=== PATIENT | female | born 1950 | race Caucasian/White ===

== ENCOUNTER → 2023-12-07 08:43 | Outpatient (REF) | payer MEDICARE, OTHER, SELFPAY | LOC: RST 08:43 | PROVIDERS: ATTENDING PHYSICIAN Internal Medicine | DX: R13.12 Dysphagia, oropharyngeal phase (principal) | CPT/HCPCS: 74230; 92611 ==

== ENCOUNTER 2023-12-19 01:35 | Inpatient (IN) | payer MEDICARE, OTHER, SELFPAY ==
[2023-12-18 20:19] VITALS: BMI 28.4
[2023-12-18 20:20] VITALS: BP 127/63
[2023-12-18 20:23] VITALS: BP 127/63
[2023-12-18 21:02] VITALS: BP 115/68
[2023-12-18] MEDS: ZOFRAN 4 MG IV (21:20)
[2023-12-18 22:00] VITALS: BP 110/77
--- NOTE | 2023-12-18 22:14 | ED.GENMED ---
History of Present Illness
General
Chief Complaint: Airway Problem
Source: patient and other (Nursing staff)
Exam Limitations: none
Time Seen by Provider: 12/18/23 20:43
Travel History
Have you had any contact with someone who has COVID-19?: Unable to Answer
Do you have any symptoms of coronavirus? Fever > 100 degrees, chills, cough, shortness of breath, sore throat, loss of taste or smell, muscle aches, or headache?: Unable to Answer
History of Present Illness
History of Present Illness:
This is a 73 year old female that is brought in by ambulance with c/o possible aspiration. Patient was getting a tube feeding and vomiting. Patient was sent in from [facility] as they were concerned about aspiration. Patient is Coughing. States
that she is nauseated, vomiting and has a headache. Denies any fever, chills, chest pain, abd pain, dizziness, urinary burning.
Past History
Past History
ED Past Medical History: CVA, GERD, HTN, Hypercholesterolemia, NIDDM, Psychiatric (Anxiety, Depression, ) and Other (Aphasia, dementia, PE, Anemia)
ED Past Surgical History: Other (G-tube)
Social History
Alcohol: None
Living: [facility]
Review of Systems
Review of Systems
All Other Systems: ROS reviewed and negative except as documented in HPI and ROS (patient able to answer questions)
Constitutional: Reports no symptoms; Denies fever or chills
EENT: Reports no symptoms
Respiratory: Reports cough and trouble breathing
Cardiac: Reports no symptoms; Denies chest pain
ABD/GI: Reports nausea and vomiting; Denies abdominal pain or diarrhea
: Reports no symptoms
Musculoskeletal: Reports no symptoms
Neurological: Reports headache; Denies dizzy
Psychiatric: Reports no symptoms
Phy Exam
General Physical Exam
General Presentation: mild distress
General age: appears stated age
General Skin: warm and dry
General Habitus: elderly
General Mental: usual mental status
General Hydration: appears well hydrated
ENT Exam
ENT Exam: TM's normal, pharynx normal and neck supple
Eye Exam
Eye Exam: EOMI
Cardiovascular Exam
Cardiovascular Exam: no edema, normal peripheral pulses and tachycardia
Pulmonary Exam
Pulmonary Exam: lungs clear, no respiratory distress, no rales, chest non tender, no crackles, no rhonchi, no wheezing and other (Course cough, Upper throat and airway secretions noted and suctioned. Lungs clear after)
Gastrointestinal Exam
Gastrointestinal Exam: normal bowel sounds, non tender, soft, no organomegaly, no pulsatile mass, non distended and other (large pasty brown stool)
External Findings: gastrostomy tube
Musculoskeletal Exam
Musculoskeletal Exam: no edema and other (Limited movement of the lower legs)
Skin Exam
Skin Exam: normal color, warm/dry, no rash and no petechia
Psychiatric Exam
Psychiatric Exam: normal mood/affect
Course
Orders/Labs/Results
Orders:
Orders
12/18/23 19:55
Ondansetron Injectable [Zofran] 4 mg IV NOW STA
12/18/23 20:22
Electrocardiogram (*1) Urgent
Reason for Study: Palpitations
EKG- Treatment ONCE
12/18/23 20:51
Ondansetron Injectable [Zofran] 4 mg .ROUTE .STK-MED ONE
12/18/23 22:13
CR Chest - 2 Views Urgent
Comment:
Reason For Exam: Cough, concern for aspiration
12/18/23 22:28
Complete Blood Count/With Diff Urgent
Comprehensive Metabolic Panel Urgent
Lactic Acid Urgent
12/18/23 22:52
Ketorolac [Toradol] 30 mg .ROUTE .STK-MED ONE
12/18/23 22:53
Ketorolac [Toradol] 30 mg IV NOW STA
12/18/23 23:45
LevoFLOXacin 500 MG/100 ML [Levaquin] 500 mg in 100 ml IV NOW
Abnormal Lab Results
12/18/23
22:28
WBC 16.5 H 10^3/uL
(4.8-10.8)
RBC 3.93 L 10^6/uL
(4.20-5.40)
Hgb 11.4 L g/dL
(12.0-16.0)
Hct 35.2 L %
(37.0-47.0)
MCHC 32.4 L g/dL
(33.0-37.0)
RDW 18.4 H %
(11.5-14.5)
MPV 10.9 H fL
(7.4-10.4)
Abs Immat Gran (auto) 0.1 H 10^3/uL
(0-0.05)
Absolute Neuts (auto) 14.3 H 10^3/uL
(1.4-6.5)
Absolute Lymphs (auto) 0.8 L 10^3/uL
(1.2-3.4)
Absolute Monos (auto) 1.0 H 10^3/uL
(0.1-0.6)
Immature Gran % 0.8 H %
(0-0.5)
Neutrophils % 86.9 H %
(42.2-75.2)
Lymphocytes % 4.9 L %
(20.5-51.1)
Potassium 3.4 L mmol/L
(3.5-5.1)
Chloride 113 H mmol/L
(98-107)
BUN 44 H mg/dl
(7-17)
Glucose 250 H mg/dl
(70-99)
Calcium 10.6 H mg/dl
(8.4-10.2)
12/18/23 22:28
12/18/23 22:28
Leukocytosis, H/h slightly low. Chloride elevation. Dehydration. Glucose nonfasting. Calcium slightly elevated. Lactic acid normal at 1.9
Vital Signs
Initial and Last Documented VS:
Initial Vital Signs
Pulse Resp BP Pulse Ox
133 25 127/63 93
12/18/23 20:20 12/18/23 20:20 12/18/23 20:20 12/18/23 20:20
Last Documented Vital Signs
Pulse Resp BP Pulse Ox
117 19 110/77 96
12/18/23 22:30 12/18/23 22:30 12/18/23 22:00 12/18/23 22:30
MDM/Problems Addressed
Differential Diagnosis Includes:
Aspiration Pneumonia.
MDM/Problems Addressed:
This is a 73 year old female that is brought in by ambulance after vomiting with her feeding tube. Patient had a low pulse ox in the 80's for EMS. Patient is coughing and has upper airway secretions
Will check labs and Chest x-ray.
Back into see patient. Explained that she has a left sided Pneumonia. Will admit patient. Hospitalists notified.
Chronic conditions affecting care:
Dysphasia, Dementia
Acute Exacerbation and/or Progression of Chronic Illness:
Dysphasia
*Radiology
Radiology exam reviewed: preliminary read by ED provider (Chest- Left sided lower lobe Pneumonia)
*Pulse Oximetry
Patient hypoxic: no
*EKG
Interpreted by ED Provider?: Yes
Heart Rate: 132
Rate: tachycardiac
Rhythm: sinus
[place]key: left axis deviation
Interval: normal interval
QRS Pattern: normal QRS and low voltage
Ischemia: non-specific ST changes (II, v3, v4, v5, v6, )
*Manager Developmental Interpretation
Rate: tachycardiac
Heart Rate: 132
Rhythm: sinus tachycardia
*Critical Care Note
Total Time (30-74mins, 75-104mins- exclusive of procedures): Not Applicable
ED Attending Note
-
Portions of this chart may have been created with voice recognition software.� Occasional wrong word or��sound alike� substitutions may have occurred due to the inherent limitations of voice recognition software.
Discharge Plan
Departure
Patient Disposition: Admit
Date of Disposition: 12/18/23
Time of Disposition: 23:49
Admit to: Med/Surg
Presentation/result/management discussed w/ accepting MD/DO: Hospitalist
Patient with high blood pressure during this ER visit?: No
Condition: Good
Covid-19: Not Applicable
Discharge Problem:
Left lower lobe pneumonia
Prescriptions:
No Action
Xanax
acetaminophen
aspirin
atorvastatin
carvedilol
fenofibrate
gabapentin
guaifenesin
ipratropium bromide
lansoprazole
levothyroxine
melatonin
metformin
rivaroxaban
scopolamine base
Referrals:
Anoop Wolf MD [Family Provider] -
Interventions
Interventions:
*Risk Screen - Suicide Last Done: 12/18/23 21:10
*General Assessment Last Done: 12/18/23 21:10
*Neglect/Abuse Screening Last Done: 12/18/23 21:10
ED- Fall Risk Assessment Last Done: 12/18/23 21:10
ED- Pulmonary Assessment Last Done: 12/18/23 21:10
Discharge Date and Time
Print Language: MONGOLIAN
[2023-12-18 22:33] LABS: % Basophils 0.4 % (0-2); % Eosinophils 0.9 % (0-6); % Immature Granulocytes 0.8 % (0-0.5); % Lymphocytes 4.9 % (20.5-51.1); % Monocytes 6.1 % (1.7-9.3); % Neutrophils 86.9 % (42.2-75.2); Absolute Basophils 0.1 10^3/uL (0-0.2); Absolute Eosinophils 0.1 10^3/uL (0-0.7); Absolute Immature Granulocytes 0.1 10^3/uL (0-0.05); Absolute Lymphocytes 0.8 10^3/uL (1.2-3.4); Absolute Neutrophils 14.3 10^3/uL (1.4-6.5); Hematocrit 35.2 % (37.0-47.0); Hemoglobin 11.4 g/dL (12.0-16.0); Mean Corp Hgb Conc. 32.4 g/dL (33.0-37.0); Mean Corpuscular Volume 89.6 fL (81.0-99.0); Mean Platelet Volume 10.9 fL (7.4-10.4); Nucleated Red Blood Cells % 0 %; Platelet Count 292 10^3/uL (130-400); Red Blood Cell Count 3.93 10^6/uL (4.20-5.40); Red Cell Dist. Width 18.4 % (11.5-14.5); White Blood Cell Count 16.5 10^3/uL (4.8-10.8)
[2023-12-18 22:48] LABS: ALT (SGPT) 16 U/L (0-35); AST (SGOT) 23 U/L (14-36); Albumin 3.7 g/dl (3.5-5.0); Alkaline Phosphatase 70 U/L (38-126); Blood Urea Nitrogen 44 mg/dl (7-17); Calcium 10.6 mg/dl (8.4-10.2); Carbon Dioxide 22 mmol/L (22-30); Chloride 113 mmol/L (98-107); Estimated Creatinine Clearance 82 ml/min; Glucose 250 mg/dl (70-99); Lactic Acid 1.9 mmol/L (0.7-2.0); Potassium 3.4 mmol/L (3.5-5.1); Sodium 145 mmol/L (135-145); Total Bilirubin 0.3 mg/dl (0.2-1.3); Total Protein 7.1 g/dl (6.3-8.2); eGFR > 60.00
[2023-12-18] MEDS: TORADOL 30 MG IV (22:54)
[2023-12-18 23:00] VITALS: BP 106/59
[2023-12-19] VITALS (10 sets, daily range): BP systolic 92–118; BP diastolic 46–67; BMI 28.4
[2023-12-19] MEDS: LEVAQUIN 100 IV (00:24)
--- NOTE | 2023-12-19 00:56 | HPS.HSE ---
Family Physician
-
Family Physician: Anoop Wolf MD
Chief Complaint
-
sent to ER for aspiration ?
History of Present Illness
73F Res of Maryana Abele HX CVA, G Tube dependent feeding, aphasic, Dementia [facility] EMS for evalaution NH for sent sent
Report she was nauseated prior to vomiting.
ROS
Denies any fever, chills, chest pain, abd pain, dizziness, urinary burning.
@ ER
Mildly tachypneic, POx low 90s requiring 4 l NC O2
Medical History
Past Medical History
Past Medical History: Reports Other
Additional Past Medical History:
CVA, GERD, HTN, Hypercholesterolemia, NIDDM, Psychiatric (Anxiety, Depression, ) and Other (Aphasia, dementia, PE, Anemia
Past Surgical History: Reports Other
Additional Past Surgical History:
PEG TF
Social History
Tobacco: Non-smoker
Alcohol: None
Living: Alf
Family History
Family History: Not pertinent
Allergies / Home Medications
Allergies reflects when Allergies were last updated in [facility].
Home Medications with original date entered in [facility]
Allergy/Medication List:
Allergies
Allergy/AdvReac Type Severity Reaction Status Date / Time
Penicillins Allergy Unknown Verified 12/18/23 20:26
Sulfa (Sulfonamide Allergy Unknown Verified 12/18/23 20:26
Antibiotics)
Home Medications
Xanax 12/18/23
acetaminophen 12/18/23
aspirin 12/18/23
atorvastatin 12/18/23
carvedilol 12/18/23
fenofibrate 12/18/23
gabapentin 12/18/23
guaifenesin 12/18/23
ipratropium bromide 12/18/23
lansoprazole 12/18/23
levothyroxine 12/18/23
melatonin 12/18/23
metformin 12/18/23
rivaroxaban 12/18/23
scopolamine base 12/18/23
Review of Systems
-
Constitutional: Reports No Symptoms
EENT: Reports No Symptoms
Respiratory: Reports Cough
Cardiac: Reports No Symptoms
Abdomen/GI: Reports Nausea and Vomiting
: Reports No Symptoms
Musculoskeletal: Reports No Symptoms
Skin: Reports No Symptoms
Neurological: Reports No Symptoms
Endocrine: Reports No Symptoms
Hematologic/Lymphatic: Reports No Symptoms
Psych: Reports No Symptoms
Physical Exam
Vital Signs
Vital Signs
Pulse Resp BP Pulse Ox
105 15 108/52 96
12/19/23 00:30 12/19/23 00:30 12/19/23 00:00 12/19/23 00:30
Physical Exam
General: Appears in Distress
HEENT: NormoCephalic, Anicteric and Moist mucous membranes
Respiratory: Clear; No Wheezes, Rales or Rhonchi
Cardiac: S1/S2 and Regular Rhythm
GI: Soft, Non Tender, Non Distended, Normal Bowel Sounds and Other (has PEG tube )
Genito-urinary: Deferred by me
Musculoskeletal: No Edema
Skin: Warm and Dry
Neuro: Awake and Alert
Psych: Calm
Laboratory Results
-
12/18/23 22:28
12/18/23 22:28
Laboratory Results
Lactic Acid 1.9 mmol/L (0.7-2.0) 12/18/23 22:28
Total Bilirubin 0.3 mg/dl (0.2-1.3) 12/18/23 22:28
AST 23 U/L (14-36) 12/18/23 22:28
ALT 16 U/L (0-35) 12/18/23 22:28
Alkaline Phosphatase 70 U/L (38-126) 12/18/23 22:28
Data Reviewed
-
Diagnostic Radiology: Image Personally Visualized and interpreted
Lab Data: Labs Reviewed by me
Impression/Plan
-
Reviewed VS: T ( ? ) Tachycardic 130s BP 125/65--> 105/60 RR 20s POx 90 - 95 on 4 L NC O2
Data
WCC 16s
Hgb 11.4
LA 1.9
K 3.4
Cl 113
BUN 44
Cr 0.6
e GFR > 60
BG 250
Pending PCT
CXR : Lt LL PNA by my view
No prior admission to
ASSESSMENT & PLAN
Pending Rx reconciliation
LLL PNA suspect aspiration PNA
Asso. acute hypoxic RF requiring 4 L NC O2
- HX PCN allergy but reaction unknown
- cont. IV LVQ , will add IV Flagyl
- cont. O2 support to keep POx > 94 %
- f/u PCT
- EKG to monitor QTc
Vomiting preceded by nausea
PEG TF dependent nutrition
- Flat plate AXR prior to TF
- Housekeeping Laundry Worker consult for TF
Hyperglycemia
NIDDM
- add ISS low
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
HX Aphasia s/p CVA
Dementia ? vascular origin
GERD
HTN
Hypercholesterolemia
NIDDM
Anxiety, Depression,
PE
Anemia
DVT Px: LMWH
Full code
IP TLM
[2023-12-19] MEDS: NSS 1000 IV (04:02)
[2023-12-19] MEDS: FLAGYL 500 MG 100 IV (04:03)
[2023-12-19 08:39] LABS: Hematocrit 30.9 % (37.0-47.0); Hemoglobin 9.5 g/dL (12.0-16.0); Mean Corp Hgb Conc. 30.7 g/dL (33.0-37.0); Mean Corpuscular Volume 94.2 fL (81.0-99.0); Mean Platelet Volume 11.9 fL (7.4-10.4); Platelet Count 248 10^3/uL (130-400); Red Blood Cell Count 3.28 10^6/uL (4.20-5.40); Red Cell Dist. Width 18.8 % (11.5-14.5); White Blood Cell Count 17.5 10^3/uL (4.8-10.8)
[2023-12-19 08:52] LABS: Lactic Acid 1.2 mmol/L (0.7-2.0)
[2023-12-19 09:18] LABS: Blood Urea Nitrogen 49 mg/dl (7-17); Carbon Dioxide 27 mmol/L (22-30); Chloride 113 mmol/L (98-107); Estimated Creatinine Clearance 44 ml/min; Glucose 144 mg/dl (70-99); Procalcitonin 26.17 ng/ml (0.0-0.25); Sodium 145 mmol/L (135-145); eGFR 52.73
[2023-12-19 09:41] LABS: Potassium 3.6 mmol/L (3.5-5.1)
[2023-12-19] MEDS: ZOSYN 50 IV ×3 (10:19→22:49)
[2023-12-19] MEDS: LR 1000 IV (10:19)
--- NOTE | 2023-12-19 10:30 | PHA.VAN.IN ---
Assessment
- Assessment
Renal Function: Unknown baseline (SCr jumped from 0.6 on 12/17 to 1.1 today.)
Maximum Temperature: 98.2
Minimum Temperature: 98.2
Concomitant Antimicrobials: Piperacillin-tazobactam
Plan
- Plan
Initial / Loading Dose: Vanc 1750mg (23mg/kg)
Maintenance Regimen: PRN by level for now. May switch to scheduled dosing if SCr improves
Monitoring: Random level 12/19
Pharmacokinetics Vancomycin I
- -
Patient Age: 73
Patient Sex: Female
Vancomycin Day #: 1
Indication: Pulmonary/Respiratory
Requesting Provider: Omega
Pertinent Antimicrobial Allergies:
PCN = unknown; Sulfa = unknown
Height / Weight:
Height 5 ft 4 in
Actual Weight 75 kg
IBW in k.7
Adjusted BW in k.8
- Vital Signs / Lab Results
Temp Pulse Resp BP Pulse Ox
98.2 F 86 16 94/52 96
12/19/23 04:08 12/19/23 09:29 12/19/23 09:29 12/19/23 04:08 12/19/23 09:29
Lab Results - Hematology
12/18/23 12/19/23
22:28 08:17
WBC 16.5 H 17.5 H
Lab Results - Chemistry
12/18/23 12/19/23
22:28 08:17
BUN 44 H 49 H
Creatinine 0.6 1.1 H
Estimated Creat Clear 82 44
Albumin 3.7
12/18/23 12/19/23
22:28 08:17
Lactic Acid 1.9 1.2
[2023-12-19] MEDS: VANCOCIN 535 MG IV (12:10)
--- NOTE | 2023-12-19 13:49 | W.PN.HOSP.TC ---
Today's Communication/Plan
-
abx
wean abx if possible
IVF
f/u cultures if expectorating
Assessment / Plan
Assessment / Plan
Physical Exam
General: Appears in Distress
HEENT: NormoCephalic, Anicteric and Moist mucous membranes
Respiratory: Clear; No Wheezes, Rales or Rhonchi
Cardiac: S1/S2 and Regular Rhythm
GI: Soft, Non Tender, Non Distended, Normal Bowel Sounds and Other (has PEG tube )
Genito-urinary: Deferred by me
Musculoskeletal: No Edema
Skin: Warm and Dry
Neuro: Awake and Alert
Psych: Calm
#?Chronic Hypoxic Respiratory Failure
#LLL Pneumonia
most likely large aspiration pneumonia
LLL PNA suspect aspiration PNA
-Can cont vanc/zosyn for now as lives in facility- quiickly de-escalate to unasyn if MRSA negative and responding well
- cont. O2 support to keep POx > 92 %
- wean o2 as tolerated
- EKG to monitor QTc
#Vomiting preceded by nausea
#PEG TF dependent nutrition
- Flat plate AXR prior to TF : no obstructions/abnormalities
- Cafeteria Operator consult for TF
#SHIVAM
--start ivf and monitor
-pre-renal v septic atn
Hyperglycemia
NIDDM
- add ISS low
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
HX Aphasia s/p CVA
Dementia ? vascular origin
GERD
HTN
Hypercholesterolemia
NIDDM
Anxiety, Depression,
PE
Anemia
DVT Px: LMWH
Full code
IP TLM
Anticipated Discharge: 24 - 48 hours
Subjective/Interval History
-
Date of Service: December 19, 2023
appears non toxic, on acute events
Objective Data
-
Labs:
Laboratory Results
12/19/23
08:17
WBC 17.5 H
Hgb 9.5 L
Hct 30.9 L
Plt Count 248
Sodium 145
Potassium 3.6
Chloride 113 H
Carbon Dioxide 27
BUN 49 H
Creatinine 1.1 H
Glucose 144 H
Calcium 10.0
Vital Signs:
Vital Signs
Temp Pulse Resp BP Pulse Ox
98.1 F 87 16 105/53 96
12/19/23 11:06 12/19/23 11:06 12/19/23 11:06 12/19/23 11:06 12/19/23 11:06
Review of Systems
-
History Source: Patient
All other systems: Not reviewed unless documented
Data Reviewed
-
Diagnostic Radiology: Image personally visualized and interpreted and Report Reviewed by me
Labs: Labs Reviewed by me
[2023-12-19] MEDS: LOVENOX 40 MG SC (17:32)
--- NOTE | 2023-12-19 20:00 | PTCARENOTE ---
Pt has a history of diabetes but no orders to check blood sugars. House LEAF FAT SCRAPER Iliana Hood notified, order for sliding scale NovoLog and accuchecks ordered.
[2023-12-20] VITALS (8 sets, daily range): BP systolic 135–179; BP diastolic 71–92; PULSE 83–84; O2SAT 97–98
[2023-12-20 00:17] LABS: Glucose - Point of Care 122 mg/dl (70-99)
[2023-12-20] MEDS: NOVOLOG FLEXPEN-LOW RESISTANCE SC ×2 (00:23→06:48)
[2023-12-20] MEDS: LR 1000 IV (03:44)
[2023-12-20] MEDS: ZOSYN 50 IV ×2 (04:37→10:29)
[2023-12-20 06:02] LABS: Glucose - Point of Care 130 mg/dl (70-99)
[2023-12-20 06:39] LABS: Hemoglobin 8.8 g/dL (12.0-16.0); Mean Corp Hgb Conc. 30.3 g/dL (33.0-37.0); Mean Corpuscular Hgb 29.1 pg (27.0-31.0); Mean Platelet Volume 11.8 fL (7.4-10.4); Platelet Count 229 10^3/uL (130-400); Red Blood Cell Count 3.02 10^6/uL (4.20-5.40); Red Cell Dist. Width 18.8 % (11.5-14.5); White Blood Cell Count 11.7 10^3/uL (4.8-10.8)
[2023-12-20 06:51] LABS: Vancomycin Random 14.6 ug/ml
[2023-12-20 07:21] LABS: ALT (SGPT) 13 U/L (0-35); AST (SGOT) 21 U/L (14-36); Albumin 3.2 g/dl (3.5-5.0); Alkaline Phosphatase 55 U/L (38-126); Blood Urea Nitrogen 42 mg/dl (7-17); Calcium 10.4 mg/dl (8.4-10.2); Carbon Dioxide 24 mmol/L (22-30); Chloride 114 mmol/L (98-107); Estimated Creatinine Clearance 70 ml/min; Glucose 127 mg/dl (70-99); Potassium 3.6 mmol/L (3.5-5.1); Sodium 147 mmol/L (135-145); Total Bilirubin 0.6 mg/dl (0.2-1.3); Total Protein 6.2 g/dl (6.3-8.2); eGFR > 60.00
--- NOTE | 2023-12-20 08:24 | PHA.VAN.FU ---
Vancomycin Assessment / Plan
- Assessment
Renal Function: Stable
WBC's are: Trending Down
In the past 24 hrs, patient has been: Afebrile
Concomitant Antimicrobials: Piperacillin/Tazobactam
- Assessment - Therapeutic Drug Monitoring
Random Level: 14.6
- Dosing Plan
Adjust Regimen to: 750mg Q12H
New Regimen Predicts: AUC (471), Peak (27.1), Trough (13.6)
- Monitoring Plan
No level(s) ordered at this time: Consider levels in next few days
- Follow Up
Pharmacy will continue to follow.
Vancomycin Follow UP
- -
Patient Age: 73
Patient Sex: Female
Vancomycin Day #: 2
Indication: Pulmonary/Respiratory
Requesting Provider: Omega
Pertinent Antimicrobial Allergies:
PCN = unknown; Sulfa = unknown
Height / Weight:
Height 5 ft 4 in
Actual Weight 75 kg
IBW in k.7
Adjusted BW in k.8
- Vital Signs / Lab Results
Temp Pulse Resp BP Pulse Ox
98.7 F 82 16 155/73 96
12/20/23 03:00 12/20/23 03:00 12/20/23 03:00 12/20/23 03:00 12/20/23 03:00
Lab Results - Hematology
12/18/23 12/19/23 12/20/23
22:28 08:17 06:12
WBC 16.5 H 17.5 H 11.7 H
Lab Results - Chemistry
12/18/23 12/19/23 12/20/23
22:28 08:17 06:12
BUN 44 H 49 H 42 H
Creatinine 0.6 1.1 H 0.7
Estimated Creat Clear 82 44 70
Albumin 3.7 3.2 L
12/18/23 12/19/23
22:28 08:17
Lactic Acid 1.9 1.2
Therapeutic Drug Monitoring
Random Vancomycin 14.6 ug/ml 12/20/23 06:12
[2023-12-20 08:46] LABS: Glycohemoglobin (HgbA1c) 6.6 % (4.0-5.6)
[2023-12-20] MEDS: VANCOCIN 150 IV (09:08)
--- NOTE | 2023-12-20 09:40 | PTOTSP ---
SPEECH THERAPY SWALLOW EVALUATION:
Patient exhibits clinical signs of oropharyngeal dysphagia, likely chronic related to history of CVA 06/2023. Patient currently NPO with PEG for all nutrition/medication/hydration. Currently admitted with aspiration pneumonia, suspect related to
aspiration of vomited material. Patient would benefit from instrumental assessment of swallow via Videofluorosopic Swallowing Study to assess current swallow physiology. However, given chronicity of dysphagia, VFSS would be appropriate as an
Outpatient. Speech therapy is not indicated at this time at patient appears to be at baseline level of swallow function. Discussed with Dr. Duff, who indicated no need for inpatient VFSS at this time. Recommend continue NPO; PEG for all
nutrition/medication/hydration. Speech therapy to sign off at this time.
RECOMMEND:
1) Outpatient VFSS
2) continue NPO with PEG for all nutrition/medication/hydration
3) Speech therapy to sign off at this time.
--- NOTE | 2023-12-20 09:44 | PTOTSP ---
Pt requires Max/dep for all ADLs and is a hiren lift transfer at baseline. Pt reports not standing/ambulating since May 2023 and is not currently working with PT/OT at facility. Pt appears to be baseline. No skilled OT services warranted. Will
sign off.
--- NOTE | 2023-12-20 11:25 | CM ---
Patient seen bedside.
Per patient the plan is back to [facility] when stable.
Per patient she does not get OOB.
Per PT/OT recommendations, no skilled needs.
Plan: [facility]
Patient will need ambulance transport.
[2023-12-20 11:50] LABS: Glucose - Point of Care 163 mg/dl (70-99)
[2023-12-20] MEDS: NOVOLOG FLEXPEN-LOW RESISTANCE 1 UNITS SC ×2 (13:18→18:12)
--- NOTE | 2023-12-20 14:03 | W.PN.HOSP.TC ---
Today's Communication/Plan
-
start tube feeds with free water
f/u cultures
switch to unasyn
f/u bmp
Assessment / Plan
Assessment / Plan
Physical Exam
General: Appears in Distress
HEENT: NormoCephalic, Anicteric and Moist mucous membranes
Respiratory: Clear; No Wheezes, Rales or Rhonchi
Cardiac: S1/S2 and Regular Rhythm
GI: Soft, Non Tender, Non Distended, Normal Bowel Sounds and Other (has PEG tube )
Genito-urinary: Deferred by me
Musculoskeletal: No Edema
Skin: Warm and Dry
Neuro: Awake and Alert
Psych: Calm
#?Chronic Hypoxic Respiratory Failure
#LLL Pneumonia
most likely large aspiration pneumonia
LLL PNA suspect aspiration PNA
-MRSA neg; dc vanc/zosyn - switch to unasyn
- cont. O2 support to keep POx > 92 %
- wean o2 as tolerated
- EKG to monitor QTc
-procal trending down
-f/u cultures
#Vomiting preceded by nausea
#PEG TF dependent nutrition
- Flat plate AXR prior to TF : no obstructions/abnormalities
- Engineer Of System Development consult for TF - start tube feeds
#SHIVAM
--s/p ivf and monitor
-pre-renal v septic atn
-resolved
#Hypernatremia
-start free water flushes with tube feeds
-ctm
Hyperglycemia
NIDDM
- add ISS low
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
HX Aphasia s/p CVA
Dementia ? vascular origin
GERD
HTN
Hypercholesterolemia
NIDDM
Anxiety, Depression,
PE
Anemia
DVT Px: LMWH
Anticipated Discharge: 24 - 48 hours
Subjective/Interval History
-
Date of Service: December 20, 2023
no acute events;
Objective Data
-
Labs:
Laboratory Results
12/20/23
06:12
WBC 11.7 H
Hgb 8.8 L
Hct 29.0 L
Plt Count 229
Sodium 147 H
Potassium 3.6
Chloride 114 H
Carbon Dioxide 24
BUN 42 H
Creatinine 0.7
Glucose 127 H
Calcium 10.4 H
Total Bilirubin 0.6
AST 21
ALT 13
Alkaline Phosphatase 55
Vital Signs:
Vital Signs
Temp Pulse Resp BP Pulse Ox
97.6 F 79 16 136/71 99
12/20/23 11:23 12/20/23 11:23 12/20/23 11:23 12/20/23 11:23 12/20/23 11:23
I&O
12/19/23 12/20/23 12/21/23
06:59 06:59 06:59
Intake Total 0 / 0 850 / 850
Output Total 0 / 0
Balance 0 / 0 850 / 850
Review of Systems
-
History Source: Patient
All other systems: Not reviewed unless documented
Data Reviewed
-
Diagnostic Radiology: Image personally visualized and interpreted and Report Reviewed by me
Labs: Labs Reviewed by me
[2023-12-20] MEDS: UNASYN IV ×2 (15:21→22:24)
[2023-12-20] MEDS: LR IV (15:47)
--- NOTE | 2023-12-20 16:18 | PTCARENOTE ---
TF Jevity 1.5 started at 25ml/hr at 1545 as per order. LT peg tube flushed without difficulty. Pt with continued requests for mouth swabs.
[2023-12-20] MEDS: LOVENOX 40 MG SC (17:22)
[2023-12-20 17:51] LABS: Glucose - Point of Care 160 mg/dl (70-99)
[2023-12-20 21:58] LABS: Glucose - Point of Care 167 mg/dl (70-99)
[2023-12-21] MEDS: NOVOLOG FLEXPEN-LOW RESISTANCE 1 UNITS SC ×2 (00:34→23:29)
[2023-12-21 03:00] VITALS: BP 176/80
[2023-12-21] MEDS: UNASYN IV ×4 (04:42→21:18)
--- NOTE | 2023-12-21 06:01 | PTCARENOTE ---
Pt yelling throughout the night. Pt requesting angelina bobo and water, when pt told she cannot have any liquids currently pt calls nurse 'asshole' to database report writer and other nurses. Pt provided with mouth swabs throughout night. Pt educated on risks and
reasoning behind no liquids by mouth. Pt in no signs of acute distress, respirations regular; call giles within reach.
[2023-12-21 06:25] LABS: Glucose - Point of Care 240 mg/dl (70-99)
[2023-12-21] MEDS: NOVOLOG FLEXPEN-LOW RESISTANCE 2 UNITS SC (06:27)
[2023-12-21 07:30] VITALS: BP 176/99
[2023-12-21 07:45] LABS: Hemoglobin 9.8 g/dL (12.0-16.0); Mean Corp Hgb Conc. 31.6 g/dL (33.0-37.0); Mean Corpuscular Volume 91.7 fL (81.0-99.0); Mean Platelet Volume 11.7 fL (7.4-10.4); Platelet Count 315 10^3/uL (130-400); Red Blood Cell Count 3.38 10^6/uL (4.20-5.40); Red Cell Dist. Width 18.6 % (11.5-14.5); White Blood Cell Count 9.2 10^3/uL (4.8-10.8)
[2023-12-21 08:06] LABS: ALT (SGPT) 13 U/L (0-35); AST (SGOT) 18 U/L (14-36); Albumin 3.5 g/dl (3.5-5.0); Alkaline Phosphatase 63 U/L (38-126); Blood Urea Nitrogen 19 mg/dl (7-17); Calcium 10.4 mg/dl (8.4-10.2); Carbon Dioxide 25 mmol/L (22-30); Chloride 115 mmol/L (98-107); Estimated Creatinine Clearance 82 ml/min; Glucose 220 mg/dl (70-99); Potassium 2.6 mmol/L (3.5-5.1); Sodium 149 mmol/L (135-145); Total Bilirubin 0.3 mg/dl (0.2-1.3); Total Protein 6.7 g/dl (6.3-8.2); eGFR > 60.00
[2023-12-21] MEDS: KLOR-CON 40 MEQ PO (09:53)
[2023-12-21 09:55] LABS: Magnesium 1.7 mg/dl (1.6-2.3)
[2023-12-21] MEDS: KCL 270 MEQ IV (10:47)
[2023-12-21 11:45] VITALS: BP 159/75
[2023-12-21 12:32] LABS: Glucose - Point of Care 279 mg/dl (70-99)
[2023-12-21] MEDS: NOVOLOG FLEXPEN-LOW RESISTANCE 3 UNITS SC ×2 (12:33→17:35)
--- NOTE | 2023-12-21 13:44 | W.PN.HOSP.TC ---
Addendum entered and electronically signed by Gina Vogel MD 12/21/23 16:02:
# Sepsis, POA
Original Note:
Today's Communication/Plan
-
see A/P
Assessment / Plan
Assessment / Plan
A/P:
# LLL Pneumonia, possible aspiration pneumonia
# ?Chronic Hypoxic Respiratory Failure
MRSA neg; off vanc/zosyn, cont unasyn
cont O2 support to keep POx > 92 %, wean O2 as tolerated
EKG to monitor QTc
procal trending down, blood Cx negative
# Vomiting preceded by nausea
# PEG TF dependent nutrition
Flat plate AXR prior to TF : no obstructions/abnormalities
Grocery Shopper consulted for TF - restarted tube feeds
# SHIVAM, resolved
SCr 1.1 -> 0.5
s/p IVF
# Hypokalemia
replete IV
Monitor K level
# Hypernatremia
Increase free water tube feed flushes
ctm
# NIDDM
ISS low
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
HX Aphasia s/p CVA
Dementia likely vascular origin
GERD
HTN
Hypercholesterolemia
Anxiety, Depression
PE
Anemia
DVT Px: resume SEPTIC CLEANER Xarelto
DW RN
Anticipated Discharge: 24 - 48 hours
Subjective/Interval History
-
Date of Service: December 21, 2023
Objective Data
-
Labs:
Laboratory Results
12/21/23 12/21/23
06:58 13:09
WBC 9.2
Hgb 9.8 L
Hct 31.0 L
Plt Count 315 D
Sodium 149 H
Potassium 2.6 L* D Pending
Chloride 115 H
Carbon Dioxide 25
BUN 19 H
Creatinine 0.5 L
Glucose 220 H
Calcium 10.4 H
Total Bilirubin 0.3
AST 18
ALT 13
Alkaline Phosphatase 63
Vital Signs:
Vital Signs
Temp Pulse Resp BP Pulse Ox
37.0 C 84 18 159/75 96
12/21/23 11:45 12/21/23 11:45 12/21/23 11:45 12/21/23 11:45 12/21/23 11:45
I&O
12/20/23 12/21/23 12/22/23
06:59 06:59 06:59
Intake Total 0 / 0 1819
Output Total 0 / 0
Balance 0 / 0 1819
Review of Systems
-
All other systems: Reviewed and negative
Physical Exam
-
General: Well Developed, Well Nourished, Comfortable, Respiratory Distress and Conversant
HEENT: Normocephalic, Atraumatic, Nose Appears Normal, Ears Appear Normal and Oxygen (2L NC)
Respiratory: Clear to Auscultation and Non Labored Respirations; Negative Accessory Resp Muscle Use
Cardiac: Regular Rhythm and S1/S2
GI: Soft, Nontender, Nondistended, Normal Bowel Sounds and Peg Tube
Skin: Warm and Dry
Neuro: Awake and Alert
Psych: Calm and Intact Judgement/Insight (somewhat)
Data Reviewed
-
Diagnostic Radiology: Image personally visualized and interpreted and Report Reviewed by me
Labs: Labs Reviewed by me
[2023-12-21 14:24] LABS: Potassium 3.7 mmol/L (3.5-5.1)
--- NOTE | 2023-12-21 14:33 | PN.CDI ---
CDI
- -
CDI:
Physician Documentation Request
Admit Date: 12/19/23 01:35
Dear Doctor Lela,
Patient admitted with LLL pneumonia.
On admission, WBC 16.5, HR> 90 and RR> 20.
Patient received IV Vancomycin , IV Levaquin, IV Zosyn and IV Unasyn.
Please clarify which of the following most accurately describes the status of the patient's infection:
Sepsis, POA
LLL pneumonia only
Other
Sepsis
- Systemic manifestations of infection, with 2 or more SIRS criteria which include:
- Fever >100.4 degrees F or hypothermia < 96.8 degrees F
- Leukocytosis - WBC > 12,000 or leukopenia - WBC < 4,000 or > 10% bands
- Tachycardia > 90 beats per minute
- Tachypnea - RR > 20 breaths per minute or PaCO2 , 32mmHg
Source: Merck Manual 2013
- Indicate the known or suspected organism
- Indicate the known or suspected underlying infection, such as pneumonia or
Localized Infection Only, Without Systemic Illness
- indicate the site/source, such as pneumonia
Other
Unable to Determine
Use of terms such as suspected, likely, concern for, or probable (associated with a specific diagnosis that is being evaluated, monitored, or treated as if it exists) are acceptable and can be coded in the inpatient setting, when documented at the
time of discharge.
Thank you,
Marissa KIDD,RN,CCDS
CDI Specialist
Available via [place] text
Please use your independent medical judgment in providing your response.
[2023-12-21 15:30] VITALS: BP 158/77
[2023-12-21] MEDS: MAGNESIUM SULFATE 100 IV (15:40)
[2023-12-21 17:13] LABS: Glucose - Point of Care 257 mg/dl (70-99)
[2023-12-21] MEDS: MELATONIN 5 MG TUBE (20:11)
[2023-12-21] MEDS: LEXAPRO 5 MG TUBE (20:11)
[2023-12-21] MEDS: XANAX 0.25 MG TUBE (20:12)
[2023-12-21] MEDS: LOW STRENGTH ASPIRIN 81 MG TUBE (20:12)
[2023-12-21] MEDS: GLUCOPHAGE 500 MG TUBE (20:12)
[2023-12-21] MEDS: COREG 3.125 MG TUBE (20:16)
[2023-12-21 20:20] VITALS: BP 137/82
[2023-12-21 23:19] VITALS: BP 115/72
[2023-12-21 23:29] LABS: Glucose - Point of Care 186 mg/dl (70-99)
[2023-12-22] MEDS: UNASYN IV ×4 (04:11→21:30)
[2023-12-22] MEDS: SYNTHROID 50 MCG TUBE (04:12)
[2023-12-22 04:24] VITALS: BP 159/83
[2023-12-22 05:19] LABS: Glucose - Point of Care 214 mg/dl (70-99)
[2023-12-22] MEDS: NOVOLOG FLEXPEN-LOW RESISTANCE 2 UNITS SC (05:20)
[2023-12-22 07:30] VITALS: BP 169/86
[2023-12-22 07:43] LABS: Glucose - Point of Care 214 mg/dl (70-99)
[2023-12-22 08:11] LABS: Hemoglobin 9.7 g/dL (12.0-16.0); Mean Corp Hgb Conc. 31.3 g/dL (33.0-37.0); Mean Corpuscular Hgb 28.7 pg (27.0-31.0); Mean Corpuscular Volume 91.7 fL (81.0-99.0); Mean Platelet Volume 11.4 fL (7.4-10.4); Platelet Count 336 10^3/uL (130-400); Red Blood Cell Count 3.38 10^6/uL (4.20-5.40); Red Cell Dist. Width 18.6 % (11.5-14.5); White Blood Cell Count 6.9 10^3/uL (4.8-10.8)
[2023-12-22] MEDS: GLUCOPHAGE 500 MG TUBE ×2 (08:34→20:07)
[2023-12-22] MEDS: COREG 3.125 MG TUBE ×2 (08:34→20:07)
[2023-12-22] MEDS: XARELTO 20 MG TUBE (08:35)
[2023-12-22] MEDS: LOW STRENGTH ASPIRIN 81 MG TUBE ×2 (08:35→20:07)
[2023-12-22] MEDS: PREVACID 30 MG TUBE (08:35)
[2023-12-22] MEDS: XANAX 0.25 MG TUBE ×2 (08:36→20:06)
[2023-12-22 09:02] LABS: ALT (SGPT) 12 U/L (0-35); AST (SGOT) 15 U/L (14-36); Albumin 3.4 g/dl (3.5-5.0); Alkaline Phosphatase 55 U/L (38-126); Blood Urea Nitrogen 17 mg/dl (7-17); Calcium 10.4 mg/dl (8.4-10.2); Carbon Dioxide 24 mmol/L (22-30); Chloride 112 mmol/L (98-107); Estimated Creatinine Clearance 82 ml/min; Glucose 206 mg/dl (70-99); Potassium 3.3 mmol/L (3.5-5.1); Sodium 149 mmol/L (135-145); Total Bilirubin 0.3 mg/dl (0.2-1.3); Total Protein 6.4 g/dl (6.3-8.2); eGFR > 60.00
--- NOTE | 2023-12-22 11:30 | WOUNDNOTE ---
[facility] RN note: Patient seen around 10am for stage 2 generalized pressure injury on HAPI report. Patient's generalized sacrum has scattered discolored skin from previous skin breakdown with a center intact linear red ecchymotic area. Patient has a very
bony sacral prominence. Silicone border foam maintained. Patient assists with turning. Patient also has a small dry healing abrasion on her L heel (does not appear new) suspect from friction. Protective foam dressings changed on heels. Patient
turned to L semi side lying position. Heels off bed with pillow. Air chair cushion given. Discussed with RN Patsy De La O who plans to apply a Waffle air overlay mattress. Updated Dr. Vogel who approved local care and air overlay or air mattress. Care
plan and discharge instructions updated. Consult as needed.
[2023-12-22 11:31] VITALS: BP 165/90
--- NOTE | 2023-12-22 12:09 | CM ---
Addendum entered by Candelaria Bull 12/23/23 13:46:
Per Liaison/[facility] patient has medicare primary.
D/c on hold till am.
Facility updated.
Addendum entered by Candelaria Bull 12/23/23 13:39:
Patient for transfer back to [facility] today.
Ambulance transport forms completed.
No Auth necessary, LTC, no skilled needs.
Plan: [facility]
Report# [phone]

Addendum entered by Candelaria Bull 12/23/23 11:25:
Per [facility] Katie, alesha to send patient back with no auth.
Addendum entered by Candelaria Bull 12/23/23 11:22:
Wound care recommeding air mattres.
Shaniqua Wilson updated.
Original Note:
Patient for transfer back to [facility] when stable.
Insurance auth initiated with [employer].
Facility will take back with a pending authorization.
[employer] Pended auth #[id number].
patient will require ambulance transport.
Plan: [facility] When medically stable.
[2023-12-22 12:34] LABS: Glucose - Point of Care 180 mg/dl (70-99)
[2023-12-22] MEDS: NOVOLOG FLEXPEN-LOW RESISTANCE 1 UNITS SC ×2 (12:40→17:58)
--- NOTE | 2023-12-22 13:18 | W.PN.HOSP.TC ---
Today's Communication/Plan
-
see A/P
Assessment / Plan
Assessment / Plan
A/P:
# LLL Pneumonia, possible aspiration pneumonia
# ?Chronic Hypoxic Respiratory Failure
MRSA neg; off vanc/zosyn, cont unasyn (pt has tolerated well)
cont O2 support to keep POx >92 %, wean O2 as tolerated
EKG to monitor QTc
procal trending down, blood Cx negative
# Vomiting preceded by nausea
# PEG TF dependent nutrition
Flat plate AXR prior to TF : no obstructions/abnormalities
Founder Ceo & President consulted for TF - restarted tube feeds
# SHIVAM, resolved
SCr 1.1 -> 0.5
s/p IVF
# Hypokalemia
replete IV
Monitor K level
# Hypernatremia
Cont to increase free water tube feed flushes
ctm
# NIDDM
ISS low
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
HX Aphasia s/p CVA
Dementia likely vascular origin
GERD
HTN
Hypercholesterolemia
Anxiety, Depression
PE
Anemia
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
DW RN
Anticipated Discharge: 24 - 48 hours
Subjective/Interval History
-
Date of Service: December 22, 2023
Objective Data
-
Labs:
Laboratory Results
12/22/23
07:19
WBC 6.9
Hgb 9.7 L
Hct 31.0 L
Plt Count 336
Sodium 149 H
Potassium 3.3 L
Chloride 112 H
Carbon Dioxide 24
BUN 17
Creatinine 0.5 L
Glucose 206 H
Calcium 10.4 H
Total Bilirubin 0.3
AST 15
ALT 12
Alkaline Phosphatase 55
Vital Signs:
Vital Signs
Temp Pulse Resp BP Pulse Ox
37.1 C 79 18 165/90 97
12/22/23 11:31 12/22/23 11:31 12/22/23 11:31 12/22/23 11:31 12/22/23 11:31
I&O
12/21/23 12/22/23 12/23/23
06:59 06:59 06:59
Intake Total 1819
Balance 1819
Review of Systems
-
All other systems: Reviewed and negative
Physical Exam
-
General: Well Developed, Well Nourished, Comfortable, Respiratory Distress and Conversant
HEENT: Normocephalic, Atraumatic, Nose Appears Normal, Ears Appear Normal and Oxygen (2L NC)
Respiratory: Clear to Auscultation and Non Labored Respirations; Negative Accessory Resp Muscle Use
Cardiac: Regular Rhythm and S1/S2
GI: Soft, Nontender, Nondistended, Normal Bowel Sounds and Peg Tube
Skin: Warm and Dry
Neuro: Awake and Alert
Psych: Calm and Intact Judgement/Insight (somewhat)
Data Reviewed
-
Diagnostic Radiology: Image personally visualized and interpreted and Report Reviewed by me
Labs: Labs Reviewed by me
[2023-12-22] MEDS: KCL 270 MEQ IV (13:49)
[2023-12-22 15:38] VITALS: BP 168/93
[2023-12-22 17:51] LABS: Glucose - Point of Care 153 mg/dl (70-99)
[2023-12-22 22:59] VITALS: BP 155/77
[2023-12-22 23:39] LABS: Glucose - Point of Care 149 mg/dl (70-99)
[2023-12-22] MEDS: NOVOLOG FLEXPEN-LOW RESISTANCE SC (23:43)
[2023-12-23] MEDS: BENADRYL 6.25 MG IV (01:08)
[2023-12-23] MEDS: UNASYN IV ×3 (04:05→20:24)
[2023-12-23 05:56] LABS: Glucose - Point of Care 152 mg/dl (70-99)
[2023-12-23] MEDS: NOVOLOG FLEXPEN-LOW RESISTANCE 1 UNITS SC (06:01)
[2023-12-23] MEDS: SYNTHROID 50 MCG TUBE (06:01)
[2023-12-23 07:32] LABS: Hematocrit 30.6 % (37.0-47.0); Hemoglobin 9.5 g/dL (12.0-16.0); Mean Corpuscular Hgb 29.1 pg (27.0-31.0); Mean Corpuscular Volume 93.9 fL (81.0-99.0); Mean Platelet Volume 11.3 fL (7.4-10.4); Platelet Count 305 10^3/uL (130-400); Red Blood Cell Count 3.26 10^6/uL (4.20-5.40); White Blood Cell Count 8.8 10^3/uL (4.8-10.8)
[2023-12-23 07:52] LABS: Albumin 3.1 g/dl (3.5-5.0); Chloride 109 mmol/L (98-107); Potassium 3.6 mmol/L (3.5-5.1); Sodium 144 mmol/L (135-145)
[2023-12-23 08:00] VITALS: BP 138/93
[2023-12-23 08:03] LABS: ALT (SGPT) 11 U/L (0-35); AST (SGOT) 19 U/L (14-36); Alkaline Phosphatase 51 U/L (38-126); Blood Urea Nitrogen 15 mg/dl (7-17); Calcium 9.6 mg/dl (8.4-10.2); Carbon Dioxide 22 mmol/L (22-30); Estimated Creatinine Clearance 82 ml/min; Glucose 160 mg/dl (70-99); Magnesium 1.5 mg/dl (1.6-2.3); Total Bilirubin 0.2 mg/dl (0.2-1.3); Total Protein 6.2 g/dl (6.3-8.2); eGFR > 60.00
[2023-12-23] MEDS: GLUCOPHAGE 500 MG TUBE ×2 (10:29→20:25)
[2023-12-23] MEDS: LOW STRENGTH ASPIRIN 81 MG TUBE ×2 (10:29→20:25)
[2023-12-23] MEDS: COREG 3.125 MG TUBE ×2 (10:29→20:25)
[2023-12-23] MEDS: XARELTO 20 MG TUBE (10:30)
[2023-12-23] MEDS: PREVACID 30 MG TUBE (10:30)
--- NOTE | 2023-12-23 11:48 | W.PN.HOSP.TC ---
Addendum entered and electronically signed by Gina Vogel MD 12/23/23 15:11:
total DC time 35 min
Original Note:
Today's Communication/Plan
-
return to prior NH
Assessment / Plan
Assessment / Plan
A/P:
# LLL Pneumonia, possible aspiration pneumonia
# ?Chronic Hypoxic Respiratory Failure
MRSA neg; off vanc/zosyn, cont unasyn (pt has tolerated well) with plan to discharge on Augmentin 2 more days (total 7 days)
cont O2 support to keep POx >92 %, wean O2 as tolerated
EKG to monitor QTc
procal trending down, blood Cx negative
# Vomiting preceded by nausea
# PEG TF dependent nutrition
Flat plate AXR prior to TF : no obstructions/abnormalities
Mud Trucker consulted for TF - restarted tube feeds
# SHIVAM, resolved
SCr 1.1 -> 0.4 today
s/p IVF
# Hypokalemia
replete IV
Monitor K level
# Hypernatremia, resolved
free water tube feed flushes was increased to 75 cc/hr, cont going forward
# NIDDM
ISS low
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
HX Aphasia s/p CVA
Dementia likely vascular origin
GERD
HTN
Hypercholesterolemia
Anxiety, Depression
PE
Anemia
DVT Px: resume REGISTERED NURSE NURSERY Xarelto
DW RN
DW CM
Anticipated Discharge: Today
Subjective/Interval History
-
Date of Service: December 23, 2023
Objective Data
-
Labs:
Laboratory Results
12/23/23
06:41
WBC 8.8
Hgb 9.5 L
Hct 30.6 L
Plt Count 305
Sodium 144
Potassium 3.6
Chloride 109 H
Carbon Dioxide 22
BUN 15
Creatinine 0.4 L
Glucose 160 H
Calcium 9.6
Total Bilirubin 0.2
AST 19
ALT 11
Alkaline Phosphatase 51
Vital Signs:
Vital Signs
Temp Pulse Resp BP Pulse Ox
36.6 C 78 18 138/93 97
12/23/23 08:00 12/23/23 10:29 12/23/23 08:00 12/23/23 10:29 12/23/23 08:00
I&O
12/22/23 12/23/23 12/24/23
06:59 06:59 06:59
Intake Total 1879
Balance 1879
Review of Systems
-
All other systems: Reviewed and negative
Physical Exam
-
General: Well Developed, Well Nourished, Comfortable, Respiratory Distress and Conversant
HEENT: Normocephalic, Atraumatic, Nose Appears Normal and Ears Appear Normal
Respiratory: Clear to Auscultation and Non Labored Respirations; Negative Accessory Resp Muscle Use
Cardiac: Regular Rhythm and S1/S2
GI: Soft, Nontender, Nondistended, Normal Bowel Sounds and Peg Tube
Skin: Warm and Dry
Neuro: Awake and Alert
Psych: Calm
Data Reviewed
-
Diagnostic Radiology: Image personally visualized and interpreted and Report Reviewed by me
Labs: Labs Reviewed by me
[2023-12-23 13:17] LABS: Glucose - Point of Care 128 mg/dl (70-99)
[2023-12-23] MEDS: NOVOLOG FLEXPEN-LOW RESISTANCE SC ×2 (13:17→18:49)
[2023-12-23] MEDS: KCL 270 MEQ IV (13:17)
--- NOTE | 2023-12-23 15:00 | W.DCSUMMARY ---
Discharge Summary
Discharge Data
Date of Admission: 12/19/23
Date of Discharge: 12/23/23
-
Pending Results: No
Hospital Course
Principal Diagnosis:
Left lower lobe aspiration pneumonia
Acute kidney injury (SHIVAM) due to dehydration, resolved
Chronic Diagnoses:�
Aphasia at baseline with history of stroke
Tube feed dependent
Dementia likely vascular in origin
Gastroesophageal reflux disease
Essential hypertension
Hypercholesterolemia
Anxiety, Depression
Bsd-wrragvs-zlkdrfoxl diabetes
Consultations:�
None
Procedures:�
None
Clinical course:�
This is a 73-year-old female, with past medical history as stated above, who presented with nausea/vomiting resulting in left lower lobe pneumonia/aspiration pneumonia.
Problem 1:
Left lower lobe aspiration pneumonia due to nausea/vomiting.
She initially received vancomycin and Zosyn, and these were changed to Unasyn (her MRSA screen was negative). She was discharged with Augmentin for 2 more days (total antibiotic course 7 days).
She was weaned off oxygen and back to room air at the time of discharge.
Her tube feed was resumed and she can continue tube feed going forward
Problem 2:
SHIVAM, due to dehydration, resolved.
She did receive IV fluid during her hospital stay.
The patient's serum creatinine down trended from 1.1 on admission to 0.4.
Problem 3:
Hypokalemia.
She received IV repletion while in the hospital.
Problem 4:
Hypernatremia, resolved following increased free water flushes via tube feed.
She can continue with free water tube feed flushes at 75 cc/hr going forward.
As for the rest of her medical problems, they were stable during her hospital stay.
Discharge Plan
-
Patient Disposition: Group Home/SNF
Discharge Diagnosis/Procedures: Left lower lobe Pneumonia due to aspiration pneumonia; resolved acute kidney injury; resolved hypernatremia; chronic dysphagia on tube feed
Condition: Fair
Diet: Other diet
Additional Diets: Continue Tube feed with Jevity 1.5 at goal rate 55 ml/hr with continuous water flushes at 75 ml/hr
Driving Restrictions: No driving
Blood Work: BMP and mag level in 1 week, results to PCP
Wound Care: Wound Care Instructions
Sacrum-clean with saline, silicone border foam, change q 3 days and prn loosened dressing.
L heel-clean with saline, no sting barrier wipe (allow to dry), foam dressing, change q 3 days and prn loosened dressing.
Air mattress
Turning schedule
elevate heels off bed with pillow/s
Pressure redistributing chair cushion (i.e. Air chair cushion).
Follow up with wound manager home healthcare as needed.
Referrals:
Anoop Wolf MD [Family Provider] - in less than 1 week
Additional Discharge Medication Instructions: continue Augmentin for 2 more days
Prescriptions:
New
amoxicillin-pot clavulanate 875-125 mg tablet
1 tab PO Q12H 2 Days Qty: 4 0RF
Continued
Xanax
0.25 mg feeding tube Q8H
acetaminophen
650 mg feeding tube Q6H PRN (Reason: Pain)
aspirin
81 mg feeding tube BID
atorvastatin
40 mg feeding tube DAILY
carvedilol
3.125 mg feeding tube BID
fenofibrate
145 mg feeding tube DAILY
gabapentin
300 mg feeding tube TID
guaifenesin 100 mL/5 mg
10 ml feeding tube Q6H PRN (Reason: Cough)
ipratropium bromide
1 vial PO Q4H
lansoprazole 3 mg/ml
10 ml feeding tube Daily
levothyroxine
50 mcg feeding tube DAILY
melatonin
metformin
500 mg feeding tube BID
rivaroxaban
20 mg feeding tube DAILY
magnesium hydroxide [Milk of Magnesia] 400 mg/5 mL Suspension
30 ml feeding tube DAILY PRN (Reason: Constipation)
bisacodyl 10 mg Suppository
10 mg DAILY PRN (Reason: Constipation)
escitalopram oxalate 5 mg Tablet
5 mg feeding tube DAILY
Discontinued
scopolamine base
sennosides-docusate sodium [Senna-S] 8.6-50 mg Tablet
Q12H
Rx Instructions:
Give 1 tablet via PEG-tube every 12 hours as needed
Discharge Orders:
Discharge Patient (As Directed); Ordered 12/23/23
Ordered By: Gina Vogel
Discharge Date and Time
Print Language: SWEDISH
--- NOTE | 2023-12-23 15:10 | CM ---
d/c on hold.
Patient receiving IV meds.
IMM completed.
Patient for transfer back to [facility] hopefully tomorrow.
Ambulance transport forms completed.
Per Liaison/Maryana Andrews, patient now has Medicare.
Plan: [facility]
Report# [phone]
[2023-12-23 16:00] VITALS: BP 166/87
[2023-12-23] MEDS: MAGNESIUM SULFATE 50 IV (18:43)
[2023-12-23 18:51] LABS: Glucose - Point of Care 134 mg/dl (70-99)
[2023-12-23] MEDS: XANAX 0.25 MG TUBE (20:25)
[2023-12-23 23:00] VITALS: BP 138/79
[2023-12-23 23:56] LABS: Glucose - Point of Care 91 mg/dl (70-99)
[2023-12-24] MEDS: NOVOLOG FLEXPEN-LOW RESISTANCE SC ×2 (01:13→05:53)
[2023-12-24 03:00] VITALS: BP 128/94
[2023-12-24] MEDS: UNASYN IV ×2 (03:22→09:42)
[2023-12-24] MEDS: XANAX 0.25 MG TUBE (03:42)
[2023-12-24 05:50] LABS: Glucose - Point of Care 118 mg/dl (70-99)
[2023-12-24] MEDS: SYNTHROID 50 MCG TUBE (06:01)
[2023-12-24 07:50] VITALS: BP 138/67
[2023-12-24 08:06] LABS: Glucose - Point of Care 142 mg/dl (70-99)
[2023-12-24 08:34] LABS: Hematocrit 31.9 % (37.0-47.0); Hemoglobin 10.1 g/dL (12.0-16.0); Mean Corp Hgb Conc. 31.7 g/dL (33.0-37.0); Mean Corpuscular Hgb 28.5 pg (27.0-31.0); Mean Corpuscular Volume 90.1 fL (81.0-99.0); Mean Platelet Volume 10.9 fL (7.4-10.4); Platelet Count 334 10^3/uL (130-400); Red Blood Cell Count 3.54 10^6/uL (4.20-5.40); Red Cell Dist. Width 17.6 % (11.5-14.5); White Blood Cell Count 10.6 10^3/uL (4.8-10.8)
[2023-12-24 08:43] LABS: ALT (SGPT) 12 U/L (0-35); AST (SGOT) 17 U/L (14-36); Albumin 3.3 g/dl (3.5-5.0); Alkaline Phosphatase 66 U/L (38-126); Blood Urea Nitrogen 12 mg/dl (7-17); Calcium 9.7 mg/dl (8.4-10.2); Carbon Dioxide 23 mmol/L (22-30); Chloride 107 mmol/L (98-107); Estimated Creatinine Clearance 82 ml/min; Glucose 139 mg/dl (70-99); Magnesium 1.8 mg/dl (1.6-2.3); Potassium 3.6 mmol/L (3.5-5.1); Sodium 137 mmol/L (135-145); Total Bilirubin 0.2 mg/dl (0.2-1.3); Total Protein 6.3 g/dl (6.3-8.2); eGFR > 60.00
--- NOTE | 2023-12-24 09:24 | CM ---
Patient for transfer back to [facility] today.
Ambulance transport forms completed.
Plan: [facility] via ambulance transport 11:30 am. Shaniqua/liaison updated.
[facility]
Report# [phone]
[2023-12-24] MEDS: COREG 3.125 MG TUBE (09:41)
[2023-12-24] MEDS: PREVACID 30 MG TUBE (09:41)
[2023-12-24] MEDS: GLUCOPHAGE 500 MG TUBE (09:41)
[2023-12-24] MEDS: XARELTO 20 MG TUBE (09:41)
[2023-12-24] MEDS: LOW STRENGTH ASPIRIN 81 MG TUBE (09:42)
--- NOTE | 2023-12-24 10:17 | W.PN.HOSP.TC ---
Today's Communication/Plan
-
DC today
Assessment / Plan
Assessment / Plan
A/P:
# LLL Pneumonia, possible aspiration pneumonia
# ?Chronic Hypoxic Respiratory Failure
MRSA neg; off vanc/zosyn, cont unasyn (pt has tolerated well) with plan to discharge on Augmentin 2 more days (total 7 days)
cont O2 support to keep POx >92 %, wean O2 as tolerated
EKG to monitor QTc
procal trending down, blood Cx negative
# Vomiting preceded by nausea
# PEG TF dependent nutrition
Flat plate AXR prior to TF : no obstructions/abnormalities
Securities Counselor consulted for TF - restarted tube feeds
# SHIVAM, resolved
SCr 1.1 -> 0.4 today
s/p IVF
# Hypokalemia
replete IV
Monitor K level
# Hypernatremia, resolved
free water tube feed flushes was increased to 75 cc/hr, cont going forward
# NIDDM
ISS low
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
HX Aphasia s/p CVA
Dementia likely vascular origin
GERD
HTN
Hypercholesterolemia
Anxiety, Depression
PE
Anemia
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
DW RN
Anticipated Discharge: Today
Subjective/Interval History
-
Date of Service: December 24, 2023
Objective Data
-
Labs:
Laboratory Results
12/24/23
07:55
WBC 10.6
Hgb 10.1 L
Hct 31.9 L
Plt Count 334
Sodium 137
Potassium 3.6
Chloride 107
Carbon Dioxide 23
BUN 12
Creatinine 0.4 L
Glucose 139 H
Calcium 9.7
Total Bilirubin 0.2
AST 17
ALT 12
Alkaline Phosphatase 66
Vital Signs:
Vital Signs
Temp Pulse Resp BP Pulse Ox
36.9 C 83 16 138/67 96
12/24/23 07:50 12/24/23 09:41 12/24/23 07:50 12/24/23 09:41 12/24/23 07:50
I&O
12/23/23 12/24/23 12/25/23
06:59 06:59 06:59
Intake Total 120 / 120
Balance 120 / 120
Review of Systems
-
All other systems: Reviewed and negative
Physical Exam
-
General: Well Developed, Well Nourished, Comfortable, Respiratory Distress and Conversant
HEENT: Normocephalic, Atraumatic, Nose Appears Normal and Ears Appear Normal
Respiratory: Clear to Auscultation and Non Labored Respirations; Negative Accessory Resp Muscle Use
Cardiac: Regular Rhythm and S1/S2
GI: Soft, Nontender, Nondistended, Normal Bowel Sounds and Peg Tube
Skin: Warm and Dry
Neuro: Awake and Alert
Psych: Calm
Data Reviewed
-
Diagnostic Radiology: Image personally visualized and interpreted and Report Reviewed by me
Labs: Labs Reviewed by me
[2023-12-24 10:38] VITALS: BP 147/66
== END 2023-12-24 12:42 | DRG 871 ==
LOC: 4 WEST ACU 01:35
PROVIDERS: Clinical Nurse Specialist Family Health; Internal Medicine; ADMITTING PHYSICIAN Internal Medicine; ATTENDING PHYSICIAN Internal Medicine; EMERGENCY PHYSICIAN Emergency Medicine; FAMILY PHYSICIAN Internal Medicine
DX: A41.9 Sepsis, unspecified organism (principal); J69.0 Pneumonitis due to inhalation of food and vomit; J96.11 Chronic respiratory failure with hypoxia; N17.9 Acute kidney failure, unspecified; E87.0 Hyperosmolality and hypernatremia; F01.50 Vascular dementia, unspecified severity, without behavioral disturbance, psychotic disturbance, mood disturbance, and anxiety; D64.9 Anemia, unspecified; E11.65 Type 2 diabetes mellitus with hyperglycemia; E78.00 Pure hypercholesterolemia, unspecified; E87.6 Hypokalemia; F32.A Depression, unspecified; E86.0 Dehydration; R11.2 Nausea with vomiting, unspecified; I10 Essential (primary) hypertension; K21.9 Gastro-esophageal reflux disease without esophagitis; Z93.1 Gastrostomy status; I69.320 Aphasia following cerebral infarction; Z88.0 Allergy status to penicillin; Z88.2 Allergy status to sulfonamides
CPT/HCPCS: 71046; 74018; 80048; 80053; 80202; 82962; 83036; 83605; 83735; 84132; 84145; 85025; 85027; 87040; 87070; 87641; 92610; 93005; 96365; 96375; 97161; 97166; 99285

== ENCOUNTER 2024-02-10 23:52 | Inpatient (IN) | payer MEDICARE, OTHER, SELFPAY ==
[2024-02-10 18:37] VITALS: BMI 25.1
[2024-02-10 18:41] VITALS: BP 136/70
--- NOTE | 2024-02-10 18:48 | ED.GENMED ---
History of Present Illness
General
Chief Complaint: Abdominal Pain
Source: patient, ambulance crew and [facility] records
Exam Limitations: none
Time Seen by Provider: 02/10/24 18:41
Nursing documentation reviewed up to this point in time: agreed with
Travel History
Have you had any contact with someone who has COVID-19?: No
Do you have any symptoms of coronavirus? Fever > 100 degrees, chills, cough, shortness of breath, sore throat, loss of taste or smell, muscle aches, or headache?: No
History of Present Illness
History of Present Illness:
73 yo female from [facility] w h/o HTN, feeding tube, CVA with aphasia, hemiparesis, non ambulatory, is here for abdominal pain RLQ, she states started about 3 hours ago. Had one episode of vomiting and feels nauseous. Denies fever, CP,
trouble breathing, is on home O2. [place] records report had a large BM today.
Past History
Past History
ED Past Medical History: CVA, GERD, HTN, Hypercholesterolemia, NIDDM, Psychiatric (Anxiety, Depression, ) and Other (Aphasia, dementia, PE, Anemia)
ED Past Surgical History: Other (G-tube)
Social History
Alcohol: None
Living: [facility]
Review of Systems
Review of Systems
Allergies reviewed?: Yes
All Other Systems: ROS reviewed and negative except as documented in HPI and ROS
Constitutional: Denies fever
Respiratory: Denies trouble breathing
Cardiac: Denies chest pain
ABD/GI: Reports abdominal pain, nausea, vomiting and other (Feeding tube); Denies diarrhea, constipated, bloody stools or black stools
: Reports incontinence; Denies dysuria
Musculoskeletal: Reports other (legs contracted); Denies edema
Skin: Reports other (chronic sacral wound)
Neurological: Denies headache
Phy Exam
Physical Exam
Physical Exam:
GENERAL: No acute distress. A&Ox3.
CONSTITUTIONAL: Afebrile.
EYES: PERRL, conjunctivae normal
Neck: Supple
ENMT: moist mucus membranes, Pharynx nl
RESPIRATORY: Regular respirations, nonlabored, lungs clear.
CARDIOVASCULAR: Regular rate and rhythm, no murmurs, no rubs.
GI: Soft, nontender, normal BS
MUSCULOSKELETAL: Moves with ease. Well perfused.
SKIN: Warm, dry, pink
PSYCH: Normal mood and affect. Well kept, interactive and appropriate
NEUROLOGIC: Awake, alert and oriented. Mild aphasia, hemiplegia post CVA.
Course
Orders/Labs/Results
Orders:
Orders
02/10/24 18:43
Ondansetron Injectable [Zofran] 4 mg IV NOW STA
02/10/24 18:45
Electrocardiogram (*1) Urgent
Reason for Study: QTc Monitoring
CT Abd/Pel (IV only)-DH only Urgent
Comment:
Reason For Exam: abdominal pain, nausea
EKG- Treatment ONCE
Complete Blood Count/With Diff Urgent
Comprehensive Metabolic Panel Urgent
Lipase Urgent
02/10/24 20:26
0.9% Sodium Chloride 1000 ml [Nss] 1,000 ml IV BOLUS
02/10/24 21:22
Urinalysis Reflex To Culture Urgent
Date Specimen was Collected: 02/10/24
Time Specimen was Collected: 20:29
Urine Microscopic Reflex Cult Urgent
Urine Culture Urgent
JAGDISH Source: U
Specimen Description:
Date Specimen was Collected: 02/10/24
Time Specimen was Collected: 20:29
02/10/24 21:43
US Abdomen Complete/Upper Urgent
Comment:
Reason For Exam: abd GB on CT scan
02/10/24 23:00
Flush (0.9% Sodium Chloride) [Flush (Nss)] See Dose Instructions IV PER PROTOCOL
02/10/24 23:21
SURGICAL CONSULT Urgent
Consulting Provider: Clint Urbina
Was physician already notified: Yes
Reason for consult: Acute cholecystitis
02/10/24 23:50
Famotidine [Pepcid] 20 mg IV NOW STA
02/11/24 00:00
CefTRIAXone [Rocephin] 1,000 mg IV Q24H
Cefepime HCl [Maxipime] 2,000 mg IV Q8H
MetroNIDAZOLE 500 MG/100 ML [Flagyl 500 mg] 100 ml IV Q8H
Sterile Water [Sterile Water For Injection] 10 ml IV Q24H
Sterile Water [Sterile Water For Injection] 10 ml IV Q8H
Abnormal Lab Results
02/10/24 02/10/24
18:45 21:22
RBC 3.38 L 10^6/uL
(4.20-5.40)
Hgb 10.0 L g/dL
(12.0-16.0)
Hct 29.8 L %
(37.0-47.0)
RDW 16.3 H %
(11.5-14.5)
MPV 10.5 H fL
(7.4-10.4)
Absolute Neuts (auto) 7.2 H 10^3/uL
(1.4-6.5)
Neutrophils % 76.4 H %
(42.2-75.2)
Lymphocytes % 14.2 L %
(20.5-51.1)
BUN 35 H mg/dl
(7-17)
Creatinine 0.5 L mg/dL
(0.6-1.0)
Glucose 166 H mg/dl
(70-99)
Calcium 11.1 H mg/dl
(8.4-10.2)
Total Bilirubin 1.4 H mg/dl
(0.2-1.3)
AST 133 H U/L
(14-36)
ALT 46 H U/L
(0-35)
Leukocyte Esterase Rfl 2+ A
(Negative)
Urine WBC (Reflex) 16-20 A /HPF
(0-5)
Urine Bacteria (Reflex) Many A
(Negative)
02/10/24 18:45
02/10/24 18:45
Vital Signs
Initial and Last Documented VS:
Initial Vital Signs
Temp Pulse Resp Pulse Ox
98.1 F 90 20 94
02/10/24 18:38 02/10/24 18:38 02/10/24 18:38 02/10/24 18:38
Last Documented Vital Signs
Temp Pulse Resp BP Pulse Ox
98.7 F 93 16 142/65 95
02/11/24 07:39 02/11/24 07:39 02/11/24 07:39 02/11/24 08:45 02/11/24 07:39
MDM/Problems Addressed
Differential Diagnosis Includes:
bowel obstruction,
MDM/Problems Addressed:
73 yo female from [facility] w h/o HTN, feeding tube, CVA with aphasia, hemiparesis, non ambulatory, is here for abdominal pain RLQ, she states started about 3 hours ago. Had one episode of vomiting and feels nauseous. Denies fever, CP,
trouble breathing, is on home O2. [place] records report had a large BM today.
EKG: Normal sinus, normal QT (Pt on Escitalopram and giving Zofran)
8:24 PM
CBC: No clinically significant abnormality
CMP: BUN 35, mild elevation of liver enzymes. Lipase normal
Pt just vomited large amount, states feeling no better, no worse
CAT scan radiology report reviewed:IMPRESSION:
Gallbladder hydrops, elongated at at least 13 cm in length. Gallbladder wall thickening and edema, multiple gallstones. Concerning for acute cholecystitis. Ultrasound is recommended.
Additional findings:
1. There is a 2 cm focus of either atelectasis, pneumonia or pulmonary nodule in the posterior left lung base. Follow-up after treatment for pneumonia to exclude malignancy.
2. There is a 2 cm focus of soft tissue density posterior lateral left bladder base, direct visualization is recommended to exclude neoplasm.
3. PEG tube in place. No bowel obstruction. No free air or free fluid. No fluid collection.
4. 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
11:00 PM
Radiology reports that patient has acute cholecystitis from ultrasound
Patient and daughter notified, they are both okay with admission for surgery
Hospitalist notified of admission
[facility] text sent to general surgeon Dr. Urbina, surgical consult in
Pt remains stable, comfortable
*Critical Care Note
Total Time (30-74mins, 75-104mins- exclusive of procedures): Not Applicable
ED Attending Note
-
Portions of this chart may have been created with voice recognition software.� Occasional wrong word or��sound alike� substitutions may have occurred due to the inherent limitations of voice recognition software.
Discharge Plan
Departure
Patient Disposition: Admit
Date of Disposition: 02/10/24
Time of Disposition: 23:20
Presentation/result/management discussed w/ accepting MD/DO: Hospitalist
Condition: Fair
Discharge Problem:
Acute cholecystitis
Interventions
Interventions:
*Risk Screen - Suicide Last Done: 02/11/24 01:00
*General Assessment Last Done: 02/10/24 18:43
*Neglect/Abuse Screening Last Done: 02/10/24 18:43
*ED COVID-19 Vaccine History Last Done: 02/11/24 01:00
*Nursing Disposition Last Done: 02/11/24 01:20
IZ-Aomgum-Ozwocudktn Assessment Last Done: 02/10/24 22:06
Discharge Date and Time
Discharge Date/Time: 02/11/24 01:21
[2024-02-10 18:52] LABS: % Basophils 0.4 % (0-2); % Eosinophils 2.2 % (0-6); % Immature Granulocytes 0.3 % (0-0.5); % Lymphocytes 14.2 % (20.5-51.1); % Monocytes 6.5 % (1.7-9.3); % Neutrophils 76.4 % (42.2-75.2); Absolute Eosinophils 0.2 10^3/uL (0-0.7); Absolute Lymphocytes 1.3 10^3/uL (1.2-3.4); Absolute Monocytes 0.6 10^3/uL (0.1-0.6); Absolute Neutrophils 7.2 10^3/uL (1.4-6.5); Hematocrit 29.8 % (37.0-47.0); Mean Corp Hgb Conc. 33.6 g/dL (33.0-37.0); Mean Corpuscular Hgb 29.6 pg (27.0-31.0); Mean Corpuscular Volume 88.2 fL (81.0-99.0); Mean Platelet Volume 10.5 fL (7.4-10.4); Nucleated Red Blood Cells % 0 %; Platelet Count 344 10^3/uL (130-400); Red Blood Cell Count 3.38 10^6/uL (4.20-5.40); Red Cell Dist. Width 16.3 % (11.5-14.5); White Blood Cell Count 9.4 10^3/uL (4.8-10.8)
[2024-02-10 19:00] VITALS: BP 153/77
[2024-02-10] MEDS: ZOFRAN 4 MG IV (19:12)
[2024-02-10 19:28] LABS: ALT (SGPT) 46 U/L (0-35); AST (SGOT) 133 U/L (14-36); Albumin 3.6 g/dl (3.5-5.0); Alkaline Phosphatase 66 U/L (38-126); Blood Urea Nitrogen 35 mg/dl (7-17); Calcium 11.1 mg/dl (8.4-10.2); Carbon Dioxide 26 mmol/L (22-30); Chloride 106 mmol/L (98-107); Estimated Creatinine Clearance 73 ml/min; Glucose 166 mg/dl (70-99); Lipase 94 U/L (23-300); Potassium 3.5 mmol/L (3.5-5.1); Sodium 141 mmol/L (135-145); Total Bilirubin 1.4 mg/dl (0.2-1.3); Total Protein 6.7 g/dl (6.3-8.2); eGFR > 60.00
[2024-02-10 20:00] VITALS: BP 146/71
[2024-02-10] MEDS: NSS 1000 IV (20:51)
[2024-02-10 21:00] VITALS: BP 126/80
[2024-02-10 21:46] LABS: Urine Albumin Negative (Neg - Trace); Urine Bilirubin Negative (Negative); Urine Character Clear (Clear); Urine Color Yellow; Urine Glucose Negative (Negative); Urine Ketone Negative (Negative); Urine Leukocyte 2+ (Negative); Urine Nitrite Negative (Negative); Urine Occult Blood Negative (Negative); Urine Urobilinogen Negative (Neg - 1+)
[2024-02-10 22:04] VITALS: BP 173/77
[2024-02-10 22:04] LABS: Urine Squamous Cell >30 /LPF (Few)
[2024-02-10 22:05] LABS: Urine Bacteria Many (Negative); Urine Red Blood Cell 0-2 /HPF (0-2); Urine White Cell 16-20 /HPF (0-5)
[2024-02-10 23:00] VITALS: BP 152/73
--- NOTE | 2024-02-10 23:28 | HPS.HSE ---
Family Physician
-
Family Physician: * NONE
Chief Complaint
-
abdominal pain
History of Present Illness
Ms. Joselyn Wagner is a 73 yo woman with hx CVA with chronic aphasia, dementia with PEG on TF, essential HTN, HLD, NIDDM, recent admission 01/11 for aspiration pneumonia presents to the ER with abdominal pain.
Patient states pain started around 1PM. She had no fevers, felt chills. + nausea. and also currently describes heart burn. No shortness of breath, no diarrhea.
Patient states she can transfer out of bed to carloz chair, does not ambulate.
Medical History
Past Medical History
Past Medical History: Reports Other
Additional Past Medical History:
CVA, GERD, HTN, Hypercholesterolemia, NIDDM, Psychiatric (Anxiety, Depression, ) and Other (Aphasia, dementia, PE, Anemia
Past Surgical History: Reports Other
Additional Past Surgical History:
PEG TF
Social History
Tobacco: Non-smoker
Alcohol: None
Living: Group Home
Family History
Family History: Not pertinent
Allergies / Home Medications
Allergies reflects when Allergies were last updated in [facility].
Home Medications with original date entered in [facility]
Allergy/Medication List:
Allergies
Allergy/AdvReac Type Severity Reaction Status Date / Time
Penicillins Allergy Unknown Verified 12/18/23 20:26
Sulfa (Sulfonamide Allergy Unknown Verified 12/18/23 20:26
Antibiotics)
Home Medications
Xanax 0.25 mg feeding tube Q8H Anxiety 12/18/23
acetaminophen 650 mg feeding tube Q6H PRN Pain 12/18/23
aspirin 81 mg feeding tube BID 12/18/23
atorvastatin 40 mg feeding tube DAILY 12/18/23
carvedilol 3.125 mg feeding tube BID 12/18/23
fenofibrate 145 mg feeding tube DAILY 12/18/23
gabapentin 300 mg feeding tube TID 12/18/23
guaifenesin 10 ml feeding tube Q6H PRN Cough 12/18/23
ipratropium bromide 1 vial PO Q4H PRN Wheezing 12/18/23
lansoprazole 10 ml feeding tube Daily Acid reflux 12/18/23
levothyroxine 50 mcg feeding tube DAILY 12/18/23
melatonin 12/18/23
metformin 500 mg feeding tube BID 12/18/23
rivaroxaban 20 mg feeding tube DAILY 12/18/23
bisacodyl 10 mg rectal suppository 10 mg DAILY PRN Constipation 12/20/23
escitalopram oxalate 5 mg tablet 5 mg feeding tube DAILY Depression 12/20/23
magnesium hydroxide 400 mg/5 mL oral suspension (Milk of Magnesia) 30 ml feeding tube DAILY PRN Constipation 12/20/23
amoxicillin 875 mg-potassium clavulanate 125 mg tablet 1 tab PO Q12H 2 days #4 tabs 12/23/23
Review of Systems
-
History Source: Patient
A 12 point ROS was completed and negative except as noted: Yes
Physical Exam
Vital Signs
Vital Signs
Temp Pulse Resp BP Pulse Ox
98.1 F 85 17 173/77 93
02/10/24 18:38 02/10/24 22:04 02/10/24 21:45 02/10/24 22:04 02/10/24 22:04
Physical Exam
General: No Apparent Distress, Conversant and Appears Chronically Ill
HEENT: PERRLA
Respiratory: Clear; No Wheezes
Cardiac: S1/S2 and Regular Rhythm
GI: Other (tenderness RUQ, no rebound or guardin)
Musculoskeletal: No Edema
Skin: Warm and Dry; No Rash
Neuro: AO x 3
Psych: Calm
Laboratory Results
-
02/10/24 18:45
02/10/24 18:45
Laboratory Results
Total Bilirubin 1.4 mg/dl (0.2-1.3) H 02/10/24 18:45
AST 133 U/L (14-36) H 02/10/24 18:45
ALT 46 U/L (0-35) H 02/10/24 18:45
Alkaline Phosphatase 66 U/L (38-126) 02/10/24 18:45
Lipase 94 U/L (23-300) 02/10/24 18:45
Data Reviewed
-
Diagnostic Radiology: Report Reviewed by me
Lab Data: Labs Reviewed by me
Impression/Plan
-
Ms. Joselyn Wagner is a 73 yo woman with hx CVA with chronic aphasia, dementia with PEG on TF, essential HTN, HLD, NIDDM, recent admission 01/11 for aspiration pneumonia presents to the ER with abdominal pain.
Triage VS: T 98.1, P 90, RR 20, SpO2 94%
LABS: WBC 9.4, Hg 10, PLT 344, Na 141, K+ 3.5, BUN 35, Cr 0.5, Glucose 166, Ca 11.1, T. Bili 1.4, AST 133, ALT 46, Alk Phos 66
CT A/P
IMPRESSION:
Gallbladder hydrops, elongated at at least 13 cm in length. Gallbladder wall thickening and edema, multiple gallstones. Concerning for acute cholecystitis. Ultrasound is recommended.
These findings were given to Kathryn Bradford via [facility] text in the emergency room at 9:40 PM.
Additional findings:
1. There is a 2 cm focus of either atelectasis, pneumonia or pulmonary nodule in the posterior left lung base. Follow-up after treatment for pneumonia to exclude malignancy.
2. There is a 2 cm focus of soft tissue density posterior lateral left bladder base, direct visualization is recommended to exclude neoplasm.
3. PEG tube in place. No bowel obstruction. No free air or free fluid. No fluid collection.
4. 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
RUQ US
IMPRESSION:
CRITICAL VALUE: Acute cholecystitis. Gallbladder hydrops, with gallbladder wall thickening, edema in the wall and pericholecystic fluid with multiple gallstones within the gallbladder.
Mild biliary ductal dilatation.
There is a 3.8 cm infrarenal AAA.
Acute Cholecystitis
-admit to med/surg
-GS consult, Dr. Urbina texted in ED
-hold STRATEGIC COMMUNICATIONS SPECIALIST Xarelto (last dose was earlier this morning ~ 8AM)
-given [place] resident and recent hospitalization, will give broad spectrum abx Cefepime/Flagyl
-patient is chronically on TF; will hold
-LR + KCl IVF
DM
-hold STRATEGIC COMMUNICATIONS SPECIALIST Metformin
-ISS low
HX Aphasia s/p CVA
-hold TF
Dementia likely vascular origin
GERD - IV Protonix
HTN
Hypercholesterolemia
-hold statin for now while NPO
Anxiety, Depression
- patient confirms she is on Xanax now twice a day. This was given last hospitalization, will continue.
PE - hold STRATEGIC COMMUNICATIONS SPECIALIST Xarelto
DVT PPx SCD
[2024-02-11] VITALS (15 sets, daily range): BP systolic 117–154; BP diastolic 47–103; BMI 26.8
[2024-02-11] MEDS: PEPCID 20 MG IV (01:13)
[2024-02-11] MEDS: KCL 1010 MEQ IV ×2 (01:14→17:20)
[2024-02-11] MEDS: FLAGYL 500 MG 100 IV ×4 (01:14→23:56)
[2024-02-11] MEDS: MAXIPIME 2000 MG IV ×4 (01:34→23:56)
[2024-02-11] MEDS: STERILE WATER FOR INJECTION 10 ML IV ×4 (01:34→23:56)
[2024-02-11] MEDS: ZOFRAN 4 MG IV (02:09)
[2024-02-11] MEDS: SYNTHROID 50 MCG TUBE (05:02)
[2024-02-11 05:20] LABS: % Basophils 0.4 % (0-2); % Immature Granulocytes 0.4 % (0-0.5); % Lymphocytes 14.7 % (20.5-51.1); % Neutrophils 74.5 % (42.2-75.2); Absolute Eosinophils 0.1 10^3/uL (0-0.7); Absolute Lymphocytes 1.2 10^3/uL (1.2-3.4); Absolute Monocytes 0.7 10^3/uL (0.1-0.6); Hematocrit 28.7 % (37.0-47.0); Hemoglobin 9.4 g/dL (12.0-16.0); Mean Corp Hgb Conc. 32.8 g/dL (33.0-37.0); Mean Corpuscular Hgb 29.6 pg (27.0-31.0); Mean Corpuscular Volume 90.3 fL (81.0-99.0); Mean Platelet Volume 10.7 fL (7.4-10.4); Nucleated Red Blood Cells % 0 %; Platelet Count 321 10^3/uL (130-400); Red Blood Cell Count 3.18 10^6/uL (4.20-5.40); Red Cell Dist. Width 16.4 % (11.5-14.5); White Blood Cell Count 8.1 10^3/uL (4.8-10.8)
[2024-02-11 05:47] LABS: ALT (SGPT) 152 U/L (0-35); AST (SGOT) 312 U/L (14-36); Albumin 3.3 g/dl (3.5-5.0); Alkaline Phosphatase 99 U/L (38-126); Blood Urea Nitrogen 27 mg/dl (7-17); Calcium 10.4 mg/dl (8.4-10.2); Carbon Dioxide 24 mmol/L (22-30); Chloride 110 mmol/L (98-107); Estimated Creatinine Clearance 73 ml/min; Glucose 144 mg/dl (70-99); Magnesium 1.7 mg/dl (1.6-2.3); Sodium 144 mmol/L (135-145); Total Bilirubin 2.1 mg/dl (0.2-1.3); Total Protein 6.3 g/dl (6.3-8.2); eGFR > 60.00
[2024-02-11 05:52] LABS: Potassium 3.6 mmol/L (3.5-5.1)
[2024-02-11 07:42] LABS: Glucose - Point of Care 150 mg/dl (70-99)
[2024-02-11 08:31] LABS: Glycohemoglobin (HgbA1c) 6.3 % (4.0-5.6)
[2024-02-11] MEDS: COREG 3.125 MG TUBE ×2 (08:45→19:43)
[2024-02-11] MEDS: NEURONTIN 300 MG TUBE ×3 (08:45→21:44)
[2024-02-11] MEDS: LEXAPRO 5 MG TUBE (08:46)
--- NOTE | 2024-02-11 08:46 | PTCARENOTE ---
Ms. Joselyn Wagner is a 73 yo woman with hx CVA with chronic aphasia, dementia with PEG on TF, essential HTN, HLD, NIDDM, recent admission 01/11 for aspiration pneumonia presents to the ER with abdominal pain. Patient states pain started around 1PM.
She has indigestion & nausea. Patient states she can transfer out of bed to carloz chair, does not ambulate. Pt has a peg tube for nutrition & meds. Pt to have a lap chol this morning. Pt AOx3. bed in a low position, call light in reach.
[2024-02-11] MEDS: PROTONIX IV 40 MG IV (08:49)
[2024-02-11] MEDS: NSS (PRESERVATIVE FREE) 10 ML IV (08:53)
[2024-02-11] MEDS: NOVOLOG FLEXPEN-LOW RESISTANCE 1 UNITS SC ×2 (08:57→17:27)
--- NOTE | 2024-02-11 08:59 | CON.GS ---
Consultation
-
Date/Time Consultation Requested: 02/11/24 0055
Requesting Provider: Jerrod
Medical History
-
Chief Complaint: RUQ pain
History of Present Illness:
This is a 73 yo female with a h/o CVA with aphasia and PEG placement for feeding, HTN, HLD, NIDDM, PE on Xarelto (LD 02/09/34) and admission for aspiration pneumonia last month who presents with heartburn symptoms and nausea with RUQ pain. She notes
she has had episodes of pain like this before. On exam, she has mild tenderness to the RUQ. PEG is in place without erythema or local irritation. She denies fevers or chills. She notes her pain is still present but not as severe.
Past Medical History
Past Medical History: HTN, Hypercholesterolemia, NIDDM and Other (PE, anemia on Xarelto)
Past Surgical History: Other
Social History
Tobacco: Non-Smoker
Alcohol: None
Living: [facility]
Family History
Family History: Reviewed & Not Pertinent
Allergies / Home Medications
Allergy/AdvReac Type Severity Reaction Status Date / Time
Penicillins Allergy Unknown Verified 12/18/23 20:26
Sulfa (Sulfonamide Allergy Unknown Verified 12/18/23 20:26
Antibiotics)
�Medication �Instructions �Recorded �Confirmed �Type
Xanax 0.25 mg feeding tube Q8H PRN 12/18/23 02/11/24 History
Anxiety
acetaminophen 650 mg feeding tube Q6H PRN Pain 12/18/23 02/11/24 History
aspirin 81 mg feeding tube BID 12/18/23 02/10/24 History
atorvastatin 40 mg feeding tube DAILY 12/18/23 02/10/24 History
carvedilol 3.125 mg feeding tube BID 12/18/23 02/10/24 History
fenofibrate 145 mg feeding tube DAILY 12/18/23 02/10/24 History
gabapentin 300 mg feeding tube TID 12/18/23 02/10/24 History
guaifenesin 10 ml feeding tube Q6H PRN Cough 12/18/23 02/10/24 History
ipratropium bromide 1 vial PO Q4H PRN Wheezing 12/18/23 02/10/24 History
lansoprazole 10 ml feeding tube Daily Acid 12/18/23 02/10/24 History
reflux
levothyroxine 50 mcg feeding tube DAILY 12/18/23 02/10/24 History
melatonin 3 mg feeding tube HS 12/18/23 History
metformin 500 mg feeding tube BID 12/18/23 02/11/24 History
rivaroxaban 20 mg feeding tube DAILY 12/18/23 02/11/24 History
bisacodyl 10 mg rectal suppository 10 mg DAILY PRN Constipation 12/20/23 02/10/24 History
escitalopram oxalate 5 mg tablet 5 mg feeding tube DAILY Depression 12/20/23 02/10/24 History
magnesium hydroxide 400 mg/5 mL 30 ml feeding tube DAILY PRN 12/20/23 02/10/24 History
oral suspension (Milk of Magnesia) Constipation
Review of Systems
-
A 10 point review of systems was completed, and was negative except as per HPI.
Physical Exam
Vital Signs
Temp Pulse Resp BP Pulse Ox
98.7 F 93 16 142/65 95
02/11/24 07:39 02/11/24 07:39 02/11/24 07:39 02/11/24 08:45 02/11/24 07:39
02/10/24 02/11/24 02/12/24
06:59 06:59 06:59
Actual Weight 66.3 kg
Body Mass Index (BMI) 25.1
Lab Results
02/11/24 05:01
02/11/24 05:01
WBC 8.1 10^3/uL (4.8-10.8) 02/11/24 05:01
Hgb 9.4 g/dL (12.0-16.0) L 02/11/24 05:01
Hct 28.7 % (37.0-47.0) L 02/11/24 05:01
Plt Count 321 10^3/uL (130-400) 02/11/24 05:01
Abs Immat Gran (auto) 0.0 10^3/uL (0-0.05) 02/11/24 05:01
Neutrophils % 74.5 % (42.2-75.2) 02/11/24 05:01
Physical Exam
General: Well Developed and No Apparent Distress
HEENT: Moist Mucous Membranes and Other (left facial droop)
Respiratory: Non Labored Respirations
GI: Soft, Non Distended and Tender (mild to RUQ)
Skin: Warm and Dry
Neuro: Awake, Alert and AO x 3
Psych: Calm
Data Reviewed
-
CT Scan: Image Personally Visualized and interpreted, Report Reviewed by me, Discussed with Physician, Discussed with Patient and Discussed with Family
Labs: Labs Reviewed by me, Discussed with Physician and Discussed with Patient
Old Records: Reviewed
Assessment / Plan
-
73 yo female with h/o h/o CVA with aphasia and PEG placement for feeding, HTN, HLD, NIDDM, PE on Xarelto (LD 02/09/34) who presents with nausea and epigastric/ruq abdominal pain. US and CT imaging reviewed with findings consistent with acute
calculous cholecystitis. Mild elevation in LFT's with no leukocytosis or fevers. Vitals stable. She is oriented x3 but complaining that her room is too hot. Would recommend lap zhang for management; which she would like to consider. She is not sure
if she would like surgery today as she has not had time to consider.
--Keep NPO
--Hold Xarelto
--Continue IV abx
--Tentative OR for lap zhang with cholangiogram later today if patient/family agreeable
--- NOTE | 2024-02-11 09:08 | CM ---
Reviewed the chart notes and spoke with [facility]iqu[facility] Admissions Liaison. 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 Patient is wheelchair bound. CM continues to be available to patient/family and is monitoring medical plan for needs
at discharge.
Plan: Discharge back to [facility] when medically stable.
Call report: [phone]
Fax report: [phone]
--- NOTE | 2024-02-11 10:29 | WOUNDNOTE ---
[facility] RN note: MICHAEL Mcdermott requested [facility] RN to look at patient's sacrum. Patient admitted with cholecystitis, for surgery today. Patient resides at SNF.
See H&P for complete history.
PMH: CVA with aphasia, PEG, HTN, NIDDM, PE (Xarelto), aspiration pneumonia.
Wound Location and type/assessment: Patient admitted with: Red scarred sacrum. L heel stage 1 red abraded skin. Mild R breast fold masd.
Appetite: NPO for surgery.
Pressure redistribution devices in place: Advanta with Accumax. Patient assists with turning.
Plan: Sacral shaped silicone border foam applied. Heel foam dressings changed. Patient transferred to a [place] air bed with help from MICHAEL Mcdermott and [facility] RN student Ana. Patient turned to L semi side lying position. Heels off bed with pillows.
Air chair cushion given. t/c SPD and ordered Foot Waffle boots.
Discussed with nursing.
Care plan to be updated. Consult as needed.
[2024-02-11 12:00] LABS: Glucose - Point of Care 132 mg/dl (70-99)
[2024-02-11] MEDS: NOVOLOG FLEXPEN-LOW RESISTANCE SC (12:00)
[2024-02-11 13:51] LABS: Glucose - Point of Care 133 mg/dl (70-99)
--- NOTE | 2024-02-11 15:25 | W.SUR.PREOP ---
Pre-Operative Surgical Note
-
I have examined this patient prior to the performance of the scheduled procedure.
The patient's condition is unchanged from the time of the current History and
Physical and the patient is able to undergo the scheduled procedure.
--- NOTE | 2024-02-11 15:25 | W.IMMPOSTOP ---
Surgical Immed Post Op Note
-
Primary Surgeon: Clint Urbina MD
Assisting Surgeon: None
Pre-op Diagnosis: Acute cholecystitis
Post-op Diagnosis: Same
Procedure Performed: Laparoscopic cholecystectomy with cholangiogram
Anesthesia Type: General
Specimen / Cultures: Gallbladder and contents
Estimated Blood Loss: 11 cc
Complications: None
Operative Findings: Dilated gallbladder with thickened gallbladder wall, primarily edema. More consistent with acute on chronic cholecystitis. Critical view of safety prior to cholangiogram which demonstrated mildly dilated ducts but no strictures
or distal filling defect. The cystic duct was fairly dilated and was ligated with a 0 PDS Endoloop.
POST OP PLAN:
Imaging: None
Labs: Routine AM
Diet: Okay to resume tube feedings tonight.
Analgesia: Tylenol 650mg q6 Gisel, Elisabeth 5mg q6 PRN, Dilaudid 0.5mg q2h PRN
Neuro/vascular checks: q4h
AC/AP: Hold Therapeutic AC for 48 hours, Ok for DVT PPx
Activity: No limitations from surgeries perspective.
Wound/Incisions/Drains: Routine
Abx: Antibiotics x 24 hours
Dispo: RNF
[2024-02-11 15:27] LABS: Glucose - Point of Care 162 mg/dl (70-99)
--- NOTE | 2024-02-11 15:27 | OR.RPT ---
Operative Report
Operative Report
Patient Name: Joselyn Wagner
: 1950
Date of Operation: 02/11/2024
Preoperative Diagnosis: Acute cholecystitis
Postoperative Diagnosis: Same
Procedure(s):
Laparoscopic Cholecystectomy with Cholangiogram
Surgeon(s):
Dr. Urbina
Bobbin Cleaner(s):
FANI Anna
Anesthesia: General
Estimated Blood Loss: 11 cc
Urine Output: None
Drains/Lines/Implants: None
Specimens:
1. Gallbladder and contents
HPI/Surgical Indications:
This is a 73-year-old female with significant comorbidities including CVA with residual aphasia, bedridden, PEG tube, on Xarelto for A-fib and history of PE who presents from her long term with a few days of abdominal pain in the setting of few
weeks of abdominal pain. Exam, labs and imaging are consistent with acute cholecystitis. Risks/Benefits/Alternatives were discussed at length, and the patient agreed to proceed with surgery.
Operative Findings:
Dilated gallbladder with thickened gallbladder wall, primarily edema. More consistent with acute on chronic cholecystitis. Critical view of safety prior to cholangiogram which demonstrated mildly dilated ducts but no strictures or distal filling
defect. The cystic duct was fairly dilated and was ligated with a 0 PDS Endoloop.
Procedure Description:
The patient was brought to the Operating Room and placed in the supine position with one arm tucked. Following uneventful induction of general endotracheal anesthesia, an orogastric tube was placed. The abdomen was prepped and draped in the usual
sterile fashion. A timeout was performed confirming the procedure, consent, and that IV antibiotics were infused and sequential compression devices were confirmed to be on. The abdomen was entered using a supraumbilical open Tony technique with a
12 mm trochar. Pneumoperitoneum to 15 mmHg pressure was obtained without difficulty and we confirmed that no injury had occurred during our entry. The patient was positioned in reverse Trendelenberg and rotated with the right side up slightly. Three
(3) 5mm trocars were then placed along the right subcostal margin. The gallbladder was emptied using a decompressing needle through the fundus of the gallbladder with evacuation of hydrops before A locking grasping forceps was placed on the fundus
of the gallbladder where it was then retracted cephalad and to the right. There were significant amount of omental adhesions draped over the gallbladder which were lysed carefully using electrocautery taking care to spare the transverse colon as
well as the duodenum. Using appropriate grasping instruments, the peritoneum overlying the triangle of Calot was incised and extended superiorly on both the anterior and posterior gallbladder yu. The infundibulum was dissected off the cystic
plate. The cystic triangle was dissected until a critical view of safety was achieved. The cystic artery was medialized, dissected and controlled with 2 proximal clips and 1 distal. The cystic duct/gallbladder junction in turn was identified,
dissected circumferentially but was too dilated to place clip. Entire gallbladder was removed off of the gallbladder fossa and hemostasis there was achieved. We then passed a 0 silk tie at the cystic duct/gallbladder junction. A ductotomy was made
and a cholangiocatheter on an Song clamp was inserted into the cystic duct. A C-arm was draped and brought into the field. An intra-operative cholangiogram was performed and was noted to have:
No filling defects in the biliary tree
Mild dilation of the common hepatic, cystic and common bile ducts.
Brisk flow of contrast into the duodenum
Normal biliary anatomy
The catheter was then removed and the cystic duct was controlled with a 0 PDS Endoloop. After ensuring both the artery and duct were divided, the gallbladder was freed from the liver using electrocautery. There was some minimal spillage of bile,
but no spillage of stones. The gallbladder bed was inspected and excellent hemostasis was obtained. The gallbladder was extracted through the 12 mm trocar site using an endocatch bag. This port site had to be enlarged slightly to accommodate the
volume of stones. The abdomen was again irrigated and excellent hemostasis was assured. All remaining trocars were then removed and the pneumoperitoneum was evacuated. The 12 mm trocar site was closed using 0 PDS suture. All trocar sites were
closed at the skin level using 4-0 Monocryl followed by Dermabond. Overall, the patient tolerated the procedure well and was taken to the Recovery Room postoperatively in stable condition.
I was the attending physician and performed the procedure with assistance from the WORKFORCE DEVELOPMENT SPECIALIST above . I was present for all portions of the case
Clint Urbina MD
--- NOTE | 2024-02-11 16:47 | W.PN.HOSP.TC ---
Addendum entered and electronically signed by Carlos Harvey MD 02/11/24 17:24:
After discussion with dietitian, start Jevity 1.5 tonight at a rate of 10 cc/hr to 20 cc/hr maximum. Do not advance tube feeding rate past 20 cc/hr tonight.
Addendum entered and electronically signed by Carlos Harvey MD 02/11/24 17:11:
I just spoke with patient's daughter Nora -- she will find out what patient's tube feeding regimen is and will call back at the nurses station -- once we get the information, we can start TRICKLE tube feeds tonight at 10 cc/hr to 20 cc/hr.
Original Note:
Today's Communication/Plan
-
Surgery took place today
Resume tube feeds at 10 cc/hr to 20 cc/hr (preferably tonight) once can get the tube feeding information from patient's [facility] - [facility]
See below for information on resuming additional medications
Assessment / Plan
Assessment / Plan
Physical Exam
General: No Apparent Distress, Conversant and Appears Chronically Ill
HEENT: PERRLA
Respiratory: Clear; No Wheezes
Cardiac: S1/S2 and Regular Rhythm
GI: Other (tenderness RUQ, no rebound or guardin)
Musculoskeletal: No Edema
Skin: Warm and Dry; No Rash
Neuro: AO x 3
Psych: Calm

Assessment/Plan
Ms. Joselyn Wagner is a 73 yo woman with hx CVA with chronic aphasia, dementia with PEG on TF, essential HTN, HLD, NIDDM, recent admission 01/11 for aspiration pneumonia presented to the ER with abdominal pain.
Triage VS: T 98.1, P 90, RR 20, SpO2 94%
LABS: WBC 9.4, Hg 10, PLT 344, Na 141, K+ 3.5, BUN 35, Cr 0.5, Glucose 166, Ca 11.1, T. Bili 1.4, AST 133, ALT 46, Alk Phos 66
CT A/P
IMPRESSION:
Gallbladder hydrops, elongated at at least 13 cm in length. Gallbladder wall thickening and edema, multiple gallstones. Concerning for acute cholecystitis. Ultrasound is recommended.
These findings were given to Kathryn Bradford via [facility] text in the emergency room at 9:40 PM.
Additional findings:
1. There is a 2 cm focus of either atelectasis, pneumonia or pulmonary nodule in the posterior left lung base. Follow-up after treatment for pneumonia to exclude malignancy.
2. There is a 2 cm focus of soft tissue density posterior lateral left bladder base, direct visualization is recommended to exclude neoplasm.
3. PEG tube in place. No bowel obstruction. No free air or free fluid. No fluid collection.
4. 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
RUQ US
IMPRESSION:
CRITICAL VALUE: Acute cholecystitis. Gallbladder hydrops, with gallbladder wall thickening, edema in the wall and pericholecystic fluid with multiple gallstones within the gallbladder.
Mild biliary ductal dilatation.
There is a 3.8 cm infrarenal AAA.

Acute Cholecystitis status post Laparoscopic Cholecystectomy with Cholangiogram on February 11, 2024
-GS consult, Dr. Urbina texted in ED
-hold VESSEL BUILDER Xarelto (last dose was earlier this morning ~ 8AM) -- will resume Xarelto on February 13, 2024 as per surgery
-given [place] resident and recent hospitalization, will give broad spectrum abx Cefepime/Flagyl
-patient is chronically on TF; will hold until cleared by surgery
-LR + KCl IVF
DM
-hold VESSEL BUILDER Metformin
-ISS low
HX Aphasia s/p CVA
-Resume tube feeds at 10 cc/hr to 20 cc/hr once can get that information from patient's ch[facility]
-Resume home Aspirin on February 12, 2024
Dementia likely vascular origin
GERD - IV Protonix
HTN
Hypercholesterolemia
-Resume statin
Anxiety, Depression
- patient confirms she is on Xanax now twice a day. This was given last hospitalization, continue.
PE - hold VESSEL BUILDER Xarelto as above
DVT PPx SCD
Anticipated Discharge: > 48 hours
Subjective/Interval History
-
Date of Service: February 11, 2024
Patient was seen and examined. She reported her abdominal pain was much better.
Objective Data
-
Labs:
Laboratory Results
02/11/24
05:01
WBC 8.1
Hgb 9.4 L
Hct 28.7 L
Plt Count 321
Sodium 144
Potassium 3.6
Chloride 110 H
Carbon Dioxide 24
BUN 27 H
Creatinine 0.5 L
Glucose 144 H
Calcium 10.4 H
Total Bilirubin 2.1 H
AST 312 H
ALT 152 H
Alkaline Phosphatase 99
Vital Signs:
Vital Signs
Temp Pulse Resp BP Pulse Ox
97.8 F 73 16 136/65 92
02/11/24 16:28 02/11/24 16:28 02/11/24 16:28 02/11/24 16:28 02/11/24 16:28
I&O
02/10/24 02/11/24 02/12/24
06:59 06:59 06:59
Intake Total 740 / 740
Balance 740 / 740
[2024-02-11 17:27] LABS: Glucose - Point of Care 181 mg/dl (70-99)
[2024-02-11] MEDS: TYLENOL 650 MG TUBE (18:14)
[2024-02-11] MEDS: LIPITOR 40 MG TUBE (18:15)
[2024-02-11 19:57] LABS: Blood Urea Nitrogen 23 mg/dl (7-17); Calcium 9.9 mg/dl (8.4-10.2); Carbon Dioxide 23 mmol/L (22-30); Chloride 109 mmol/L (98-107); Estimated Creatinine Clearance 73 ml/min; Glucose 171 mg/dl (70-99); Magnesium 1.7 mg/dl (1.6-2.3); Phosphorus 3.6 mg/dl (2.5-4.5); Potassium 3.9 mmol/L (3.5-5.1); Sodium 142 mmol/L (135-145); eGFR > 60.00
[2024-02-12 00:11] LABS: Glucose - Point of Care 238 mg/dl (70-99)
[2024-02-12] MEDS: NOVOLOG FLEXPEN-LOW RESISTANCE 2 UNITS SC ×3 (00:13→18:54)
[2024-02-12 03:02] VITALS: BP 118/61
[2024-02-12] MEDS: SYNTHROID 50 MCG TUBE (05:32)
[2024-02-12 06:05] LABS: Glucose - Point of Care 214 mg/dl (70-99)
[2024-02-12 07:30] VITALS: BP 130/50
[2024-02-12 08:10] LABS: Hematocrit 27.5 % (37.0-47.0); Hemoglobin 8.8 g/dL (12.0-16.0); Mean Corpuscular Hgb 29.6 pg (27.0-31.0); Mean Corpuscular Volume 92.6 fL (81.0-99.0); Mean Platelet Volume 10.8 fL (7.4-10.4); Platelet Count 308 10^3/uL (130-400); Red Blood Cell Count 2.97 10^6/uL (4.20-5.40); Red Cell Dist. Width 16.3 % (11.5-14.5); White Blood Cell Count 10.3 10^3/uL (4.8-10.8)
[2024-02-12 09:01] LABS: ALT (SGPT) 151 U/L (0-35); AST (SGOT) 197 U/L (14-36); Albumin 2.9 g/dl (3.5-5.0); Alkaline Phosphatase 119 U/L (38-126); Blood Urea Nitrogen 23 mg/dl (7-17); Calcium 9.7 mg/dl (8.4-10.2); Carbon Dioxide 24 mmol/L (22-30); Chloride 110 mmol/L (98-107); Estimated Creatinine Clearance 73 ml/min; Glucose 179 mg/dl (70-99); Magnesium 1.8 mg/dl (1.6-2.3); Phosphorus 3.4 mg/dl (2.5-4.5); Potassium 3.7 mmol/L (3.5-5.1); Sodium 142 mmol/L (135-145); Total Bilirubin 0.8 mg/dl (0.2-1.3); Total Protein 5.8 g/dl (6.3-8.2); eGFR > 60.00
[2024-02-12] MEDS: NEURONTIN 300 MG TUBE ×2 (09:05→16:56)
[2024-02-12] MEDS: LEXAPRO 5 MG TUBE (09:05)
[2024-02-12] MEDS: FLAGYL 500 MG 100 IV ×2 (09:13→16:56)
[2024-02-12] MEDS: MAXIPIME 2000 MG IV ×2 (09:15→16:57)
[2024-02-12] MEDS: STERILE WATER FOR INJECTION 10 ML IV ×2 (09:15→17:07)
[2024-02-12] MEDS: NSS (PRESERVATIVE FREE) 10 ML IV (09:18)
[2024-02-12] MEDS: PROTONIX IV 40 MG IV (09:18)
[2024-02-12] MEDS: COREG 3.125 MG TUBE (09:31)
[2024-02-12 11:15] VITALS: BP 157/74
--- NOTE | 2024-02-12 11:37 | PTCARENOTE ---
pt has bilat scopolamine patches behind ears. can not read a date, do not see them on med list. notified Dr. Harvey. Called [facility], they politely told nurse to change them today.
[2024-02-12 11:57] LABS: Glucose - Point of Care 178 mg/dl (70-99)
[2024-02-12] MEDS: NOVOLOG FLEXPEN-LOW RESISTANCE 300 UNITS SC (14:03)
--- NOTE | 2024-02-12 14:16 | W.PN.GS2 ---
Addendum entered and electronically signed by Taye Maddox MD 02/12/24 14:32:
I saw and examined the patient.
The Substitute Bus Driver's note was reviewed and I agree with the note.
Comment: C/o mild abd pain with deep breath. Otherwise is karlee TF, pain controlled. Exam approp. OK for return to facility from surgical standpoint. Pls call with ?s
Original Note:
Today's Communication / Plan
-
TF to goal
Analgesics prn
Assessment / Plan
-
73 yo female with h/o h/o CVA with aphasia and PEG placement for feeding, HTN, HLD, NIDDM, PE on Xarelto (LD 02/09/34) who presents from SNF with nausea and epigastric/ruq abdominal pain. US and CT imaging reviewed with findings consistent with acute
calculous cholecystitis. Now POD #1 Lap zhang.
AFVSS
LFT's improving
Labs stable
--Advance TF to goal
--Hold Xarelto for 72 hours post op (resume Wednesday evening)
--Antibiotics through today, then ok to d/c
--IS while awake
--OOB/Increase activity
--Ok to return to facility from surgical standpoint. Final dispo as per primary team
Subjective Data
-
Date of Service: February 12, 2024
Patient seen and examined at bedside with Dr. Maddox. Some discomfort with deep breathing to incisions. Mild generalized abdominal tenderness. Denies nausea/vomiting.
Objective Data
-
Intake and Output
02/11/24 02/12/24 02/13/24
06:59 06:59 06:59
Intake Total 1040 / 1040
Balance 1040 / 1040
Intake:
IV fluids (Total) 740 / 740
normosol 100 / 100
IV piggybacks 200 / 200
Amount instilled into GI Tube ( 100 / 100
Total)
Gastrostomy 100 / 100
Other:
Number of approximated LARGE 1
amounts of urine
How many times incontinent 1
MODERATE amount urine
How many times incontinent 1
SATURATED amount urine
Vital Signs
Temp Pulse Resp BP Pulse Ox
98.6 F 70 16 157/74 94
02/12/24 11:15 02/12/24 11:15 02/12/24 11:15 02/12/24 11:15 02/12/24 11:41
Lab Results
02/12/24 07:55
02/12/24 07:55
Calcium 9.7 mg/dl (8.4-10.2) 02/12/24 07:55
Phosphorus 3.4 mg/dl (2.5-4.5) 02/12/24 07:55
Magnesium 1.8 mg/dl (1.6-2.3) 02/12/24 07:55
Total Bilirubin 0.8 mg/dl (0.2-1.3) D 02/12/24 07:55
AST 197 U/L (14-36) H 02/12/24 07:55
ALT 151 U/L (0-35) H 02/12/24 07:55
Alkaline Phosphatase 119 U/L (38-126) 02/12/24 07:55
Total Protein 5.8 g/dl (6.3-8.2) L 02/12/24 07:55
Albumin 2.9 g/dl (3.5-5.0) L 02/12/24 07:55
Physical Exam
-
NAD
ABD soft, Mild incisional tenderness, NUTRITIONAL SERVICES COOK, No rebound/guarding. G-tube present without leakage/erythema
Incisions clear, dry, intact glue, well approximated
--- NOTE | 2024-02-12 15:08 | W.PN.HOSP.TC ---
Today's Communication/Plan
-
Discharge today
Assessment / Plan
Assessment / Plan
Physical Exam
General: No Apparent Distress, Conversant and Appears Chronically Ill
HEENT: Normocephalic
Respiratory: Clear to Auscultation Bilaterally
Cardiac: S1/S2 and Regular Rhythm
GI: Other (tenderness RUQ, no rebound or guarding)
Musculoskeletal: No Edema
Skin: Warm and Dry
Neuro: AAO x 3
Psych: Calm

Assessment/Plan
Ms. Joselyn Wagner is a 73 yo woman with hx CVA with chronic aphasia, dementia with PEG on TF, essential HTN, HLD, NIDDM, recent admission 01/11 for aspiration pneumonia presented to the ER with abdominal pain.
Triage VS: T 98.1, P 90, RR 20, SpO2 94%
LABS: WBC 9.4, Hg 10, PLT 344, Na 141, K+ 3.5, BUN 35, Cr 0.5, Glucose 166, Ca 11.1, T. Bili 1.4, AST 133, ALT 46, Alk Phos 66
CT A/P
IMPRESSION:
Gallbladder hydrops, elongated at at least 13 cm in length. Gallbladder wall thickening and edema, multiple gallstones. Concerning for acute cholecystitis. Ultrasound is recommended.
These findings were given to Kathryn Bradford via [place] text in the emergency room at 9:40 PM.
Additional findings:
1. There is a 2 cm focus of either atelectasis, pneumonia or pulmonary nodule in the posterior left lung base. Follow-up after treatment for pneumonia to exclude malignancy.
2. There is a 2 cm focus of soft tissue density posterior lateral left bladder base, direct visualization is recommended to exclude neoplasm.
3. PEG tube in place. No bowel obstruction. No free air or free fluid. No fluid collection.
4. 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
RUQ US
IMPRESSION:
CRITICAL VALUE: Acute cholecystitis. Gallbladder hydrops, with gallbladder wall thickening, edema in the wall and pericholecystic fluid with multiple gallstones within the gallbladder.
Mild biliary ductal dilatation.
There is a 3.8 cm infrarenal AAA.

Acute Cholecystitis status post Laparoscopic Cholecystectomy with Cholangiogram on February 11, 2024
- consult, Dr. Urbina texted in ED
-hold LOTTERY MANAGER Xarelto (last dose was earlier this morning ~ 8AM) -- resume Xarelto on February 14, 2024 evening - as per surgery
-given [place] resident and recent hospitalization, will give broad spectrum abx Cefepime/Flagyl
-patient is chronically on TF --> currently on tube feeds 20 cc/hr --> advance tube feed (by 20 cc/hr every 8 hours or as tolerated by patient) as appropriate to goal
-Can stop antibiotics after today as discussed with surgery
DM
-hold LOTTERY MANAGER Metformin
-ISS low
HX Aphasia s/p CVA
-Resume tube feeds
-Resume home Aspirin on February 12, 2024
Dementia likely vascular origin
GERD
HTN
Hypercholesterolemia
-Resume statin
Anxiety, Depression
- patient confirms she is on Xanax now twice a day. This was given last hospitalization, continue.
PE - hold LOTTERY MANAGER Xarelto as above
DVT PPx SCD
More than 30 minutes spent in discharge including
Final examination of the patient
Summarizing hospital stay
Instructions for continuing care to all relevant caregivers
Preparation of discharge records, prescriptions, and referral forms
Total time spent (in minutes): 43
Anticipated Discharge: Today
Subjective/Interval History
-
Date of Service: February 12, 2024
Patient was seen and examined. She reported feeling okay, except for some mild abdominal tenderness.
Objective Data
-
Labs:
Laboratory Results
02/12/24
07:55
WBC 10.3
Hgb 8.8 L
Hct 27.5 L
Plt Count 308
Sodium 142
Potassium 3.7
Chloride 110 H
Carbon Dioxide 24
BUN 23 H
Creatinine 0.5 L
Glucose 179 H
Calcium 9.7
Total Bilirubin 0.8 D
AST 197 H
ALT 151 H
Alkaline Phosphatase 119
Vital Signs:
Vital Signs
Temp Pulse Resp BP Pulse Ox
98.6 F 70 16 157/74 94
02/12/24 11:15 02/12/24 11:15 02/12/24 11:15 02/12/24 11:15 02/12/24 11:41
I&O
02/11/24 02/12/24 02/13/24
06:59 06:59 06:59
Intake Total 1040 / 1040
Balance 1040 / 1040
[2024-02-12 15:20] VITALS: BP 143/60
--- NOTE | 2024-02-12 16:08 | CM ---
received a call from attending that patient is stable to return to [facility].i called facility and was told patient is able to return today.spoke with floor nurse.called daughter to let her know patient is scheduled to return to [facility].arranged tansport for 5:30pm via acute care.read imm letter to patient .she was i agreement to discharge back to facility.
Phone number to call report [phone] and fax# [phone] to [facility].
--- NOTE | 2024-02-12 16:27 | W.DS.TRANS ---
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
-
Discharge Instructions:
Discharge Diagnosis/Procedures Concern pulmonary nodule in the posterior left
lung base on CT Imaging
Soft tissue density posterior lateral left
bladder base on CT Imaging
Infra-renal Abdominal Aortic Aneurysm
Acute Cholecystitis status post Laparoscopic
Cholecystectomy with Cholangiogram on February 10
2023
Diabetes Mellitus
History of Aphasia status post cerebrovascular
accident
Dementia likely vascular origin
GERD
Hypertension
Hypercholesterolemia
Anxiety, Depression
Pulmonary Embolism
Diet Tube feeding
Additional Diets Advance tube feed (from 20 cc/hr and increased
by 20 cc/hr every 8 hours, or as tolerated by
patient) as appropriate to goal
Activity As tolerated
Driving Restrictions No driving
Blood Work CBC, CMP, magnesium and phosphorus by February 13
2023
Other Services PT,OT
Instructions:
Stand-Alone Forms:
Changes to Home Medications: Yes
Discharge Medications:
DC Medications w/original date entered in [employer]
Xanax 0.25 mg feeding tube Q8H PRN Anxiety 12/18/23
acetaminophen 650 mg feeding tube Q6H PRN Pain 12/18/23
aspirin 81 mg feeding tube BID Blood Clot Prevention/Tx 12/18/23
atorvastatin 40 mg feeding tube DAILY High Cholesterol 12/18/23
carvedilol 3.125 mg feeding tube BID Blood Pressure 12/18/23
fenofibrate 145 mg feeding tube DAILY High Cholesterol 12/18/23
gabapentin 300 mg feeding tube TID PAIN 12/18/23
guaifenesin 10 ml feeding tube Q6H PRN Cough 12/18/23
ipratropium bromide 1 vial PO Q4H PRN Wheezing 12/18/23
lansoprazole 10 ml feeding tube Daily Acid reflux 12/18/23
levothyroxine 50 mcg feeding tube DAILY Thyroid 12/18/23
melatonin 3 mg feeding tube HS Sleep 12/18/23
metformin 500 mg feeding tube BID Diabetes 12/18/23
rivaroxaban 20 mg feeding tube DAILY Blood Clot Prevention/Tx 12/18/23
bisacodyl 10 mg rectal suppository 10 mg DAILY PRN Constipation 12/20/23
escitalopram oxalate 5 mg tablet 5 mg feeding tube DAILY Depression 12/20/23
magnesium hydroxide 400 mg/5 mL oral suspension (Milk of Magnesia) 30 ml feeding tube DAILY PRN Constipation 12/20/23
Home Medication Changes
Resume Rivaroxaban on the evening of February 14, 2024.
Hold Acetaminophen due to elevated AST and ALT.
Hold Metformin until appropriate to resume after recheck of basic labwork.
Pending Results: Yes
Additional Pending Results:
Final results of blood cultures
Total time spent discharging patient (in min): 43
--- NOTE | 2024-02-12 16:29 | W.DCSUMMARY ---
Discharge Summary
Discharge Data
Date of Admission: 02/10/24
Date of Discharge: 02/12/24
Total time spent discharging patient (in min): 43
-
Pending Results: Yes
Additional Pending Results:
Final results of blood cultures
Hospital Course
73 y/o female with past medical history of CVA with chronic aphasia, dementia with PEG on TF, essential HTN, HLD, NIDDM, recent admission 01/11 for aspiration pneumonia presented to the emergency room with abdominal pain. Patient was found to have
acute cholecystitis and antibiotics were started. General surgery was consulted. On February 11, 2024, patient had a laparoscopic cholecystectomy with cholangiogram. Patient did well after the surgery and was stable for discharge.
Discharge Plan
-
Patient Disposition: [facility]/SNF
Discharge Diagnosis/Procedures: Concern pulmonary nodule in the posterior left lung base on CT Imaging
Soft tissue density posterior lateral left bladder base on CT Imaging
Infra-renal Abdominal Aortic Aneurysm
Acute Cholecystitis status post Laparoscopic Cholecystectomy with Cholangiogram on February 11, 2024
Diabetes Mellitus
History of Aphasia status post cerebrovascular accident
Dementia likely vascular origin
GERD
Hypertension
Hypercholesterolemia
Anxiety, Depression
Pulmonary Embolism
Condition: Fair
Diet: Tube feeding
Additional Diets: Advance tube feed (from 20 cc/hr and increased by 20 cc/hr every 8 hours, or as tolerated by patient) as appropriate to goal
Activity: As tolerated
Driving Restrictions: No driving
Blood Work: CBC, CMP, magnesium and phosphorus by February 14, 2024
Other Services: PT and OT
Activity Restrictions/Additional Instructions:
Instructions following Laparoscopic cholecystectomy
Per surgery, it was okay to stop antibiotics on February 12, 2024. Please follow-up blood culture results from the hospitalization.
Resume Xarelto on February 14, 2024 evening
Please call [phone] if you have any questions or concerns after your surgery.
Wound Care:
Your incisions are covered with skin glue which will come off on it�s own in 5-10 days.
It is ok to shower the day after your surgery. Do not scrub the incisions, let soap and water wash over them and pat dry.
� Bruising around your incisions is normal.
� Using ice packs will help minimize this swelling.
� No swimming or soaking incisions for 1 week.
� Your stitches will dissolve and do not need to be removed.
Urinary retention:
If you are unable to urinate 6-8 hours after your surgery, please call [phone] to discuss further management.
Activity:
No heavy lifting more than 15 pounds for the next 3 weeks, then you may gradually lift heavier objects as tolerated by discomfort. Otherwise activity as tolerated by your comfort level.
Pain Management:
Use Tylenol, ibuprofen and ice packs to treat your pain.
� You may take 650 milligrams of Tylenol (Max 3 grams per day) every 6 hours, and 600 mg of ibuprofen also every 6 hours. (you can alternate them every 3 hours)
� You may use an ice pack to your incision as needed.
� If you still have pain not controlled by these measures, take your prescription pain medication as prescribed.
Medications:
You may resume your home medications.
YOU CAN RESTART YOUR XARELTO (RIVAROXABAN) ON 02/14/24 AT YOUR USUAL DOSE AND TIME
Bowel Medications:
Prescription pain medication can make you constipated. If you take this medication, also take colace 100 mg twice daily (this is over the counter). If this is not sufficient, you may take Miralax (polyethylene glycol) to help move your bowels.
Diet:
After your procedure, there are no dietary restrictions. You may notice loose stools for up to 4 weeks after surgery with fatty meals, if this is the case you may have to adjust your diet as needed.
Driving restrictions:
No driving if you are taking prescription pain medication or if you think your normal reaction time and attentiveness has been slowed by your surgery.
Things to Look out for:
Worsening Abdominal pain, redness or drainage from incision
Call Doctor for:
Please call if you notice worsening redness or drainage from incision(s) lasting longer than 5 days after your surgery, any foul-smelling drainage from the incision, pain not controlled by pain medications, persistent nausea and vomiting, or for any
fevers greater than 101.3 F. The number for questions/concerns is [phone]
Follow-up:
Follow-up appointment will be scheduled with your surgeon in 3-4 weeks. Please call prior to your appointment if you have any questions or concerns. [phone]
Referrals:
Boby Negro III, MD [Active] - in three to four weeks (Infrarenal Abdominal Aortic Aneurysm on hospitalization CT imaging)
Eliezer Reyes MD [Active] - in three to four weeks (Soft tissue density posterior lateral left bladder base -- need to rule out neoplasm)
Jeannie Perea DO [Active] - in two to four weeks (Concern for incidental pulmonary nodule on left lung base)
NONE,* [Family Provider] -
Additional Discharge Medication Instructions: Resume Rivaroxaban on the evening of February 14, 2024.
Hold Acetaminophen due to elevated AST and ALT.
Hold Metformin until appropriate to resume after recheck of basic labwork.
Prescriptions:
Continued
Xanax
0.25 mg feeding tube Q8H PRN (Reason: Anxiety)
aspirin
81 mg feeding tube BID
atorvastatin
40 mg feeding tube DAILY
carvedilol
3.125 mg feeding tube BID
fenofibrate
145 mg feeding tube DAILY
gabapentin
300 mg feeding tube TID
guaifenesin 100 mL/5 mg
10 ml feeding tube Q6H PRN (Reason: Cough)
ipratropium bromide
1 vial PO Q4H PRN (Reason: Wheezing)
lansoprazole 3 mg/ml
10 ml feeding tube Daily
levothyroxine
50 mcg feeding tube DAILY
melatonin
3 mg feeding tube HS
magnesium hydroxide [Milk of Magnesia] 400 mg/5 mL Suspension
30 ml feeding tube DAILY PRN (Reason: Constipation)
bisacodyl 10 mg Suppository
10 mg DAILY PRN (Reason: Constipation)
escitalopram oxalate 5 mg Tablet
5 mg feeding tube DAILY
Held
acetaminophen
650 mg feeding tube Q6H PRN (Reason: Pain)
Hold Instructions: Resume on 02/26/24. Resume if and only if okay to resume as per outpatient physicians.
metformin
500 mg feeding tube BID
Hold Instructions: Resume on 02/15/24.
rivaroxaban
20 mg feeding tube DAILY
Hold Instructions: Resume on 02/14/24. Resume on evening of February 14, 2024.
Discharge Orders:
Discharge Patient (As Directed); Ordered 02/12/24
Ordered By: Carlos Harvey
Discharge Date and Time
Discharge Date/Time: 02/12/24 19:07
Print Language: AMHARIC
[2024-02-12] MEDS: LIPITOR 40 MG TUBE (16:57)
[2024-02-12] MEDS: ROXICODONE ORAL SOLUTION 5 MG TUBE (16:57)
[2024-02-12 18:53] LABS: Glucose - Point of Care 226 mg/dl (70-99)
== END 2024-02-12 19:07 | DRG 418 ==
LOC: 2 SOUTH 23:52
PROVIDERS: Radiology Vascular & Interventional Radiology; Registered Nurse; ADMITTING PHYSICIAN Student in an Organized Health Care Education/Training Program; ATTENDING PHYSICIAN Hospitalist; CONSULT PHYSICIAN Surgery; EMERGENCY PHYSICIAN Emergency Medicine
PROC: 0FT44ZZ Resection of Gallbladder, Percutaneous Endoscopic Approach (ICD-10-PCS; 2024-02-11)
PROC: BF5C2Z0 Other Imaging of Hepatobiliary System, All using Fluorescing Agent, Intraoperative (ICD-10-PCS; 2024-02-11)
PROC: 0FN44ZZ Release Gallbladder, Percutaneous Endoscopic Approach (ICD-10-PCS; 2024-02-11)
DX: K80.00 Calculus of gallbladder with acute cholecystitis without obstruction (principal); F01.54 Vascular dementia, unspecified severity, with anxiety; I69.359 Hemiplegia and hemiparesis following cerebral infarction affecting unspecified side; K82.1 Hydrops of gallbladder; J98.11 Atelectasis; I69.320 Aphasia following cerebral infarction; I10 Essential (primary) hypertension; D64.9 Anemia, unspecified; E11.9 Type 2 diabetes mellitus without complications; E78.00 Pure hypercholesterolemia, unspecified; F32.A Depression, unspecified; K21.9 Gastro-esophageal reflux disease without esophagitis; K66.0 Peritoneal adhesions (postprocedural) (postinfection); R91.1 Solitary pulmonary nodule; I71.43 Infrarenal abdominal aortic aneurysm, without rupture; Z93.1 Gastrostomy status; Z99.81 Dependence on supplemental oxygen; Z88.2 Allergy status to sulfonamides; Z88.0 Allergy status to penicillin; Z79.82 Long term (current) use of aspirin; Z79.890 Hormone replacement therapy; Z79.84 Long term (current) use of oral hypoglycemic drugs; Z87.01 Personal history of pneumonia (recurrent); Z86.711 Personal history of pulmonary embolism; Z79.01 Long term (current) use of anticoagulants; Z74.01 Bed confinement status
CPT/HCPCS: 88304; 74177; 74300; 76000; 76700; 80048; 80053; 81003; 81015; 82962; 83036; 83690; 83735; 84100; 85025; 85027; 86850; 86900; 86901; 87040; 87086; 93005; 96361; 96374; 99285; A4300; Q9967

== ENCOUNTER → 2024-06-30 08:54 | Outpatient (REF) | payer MEDICARE, OTHER, SELFPAY | LOC: RST 08:54 | PROVIDERS: ATTENDING PHYSICIAN Internal Medicine | DX: R13.12 Dysphagia, oropharyngeal phase (principal) | CPT/HCPCS: 74230; 92611 ==

== ENCOUNTER 2024-08-23 15:21 | Emergency (ER) | payer MEDICARE, OTHER, SELFPAY ==
[2024-08-23] VITALS (12 sets, daily range): BP systolic 87–143; BP diastolic 52–104
[2024-08-23 15:57] LABS: % Basophils 1.3 % (0-2); % Eosinophils 8.2 % (0-6); % Immature Granulocytes 0.3 % (0-0.5); % Lymphocytes 48.1 % (20.5-51.1); % Monocytes 10.6 % (1.7-9.3); % Neutrophils 31.5 % (42.2-75.2); Absolute Basophils 0.1 10^3/uL (0-0.2); Absolute Eosinophils 0.5 10^3/uL (0-0.7); Absolute Monocytes 0.7 10^3/uL (0.1-0.6); Hematocrit 34.3 % (37.0-47.0); Mean Corp Hgb Conc. 32.1 g/dL (33.0-37.0); Mean Corpuscular Hgb 30.8 pg (27.0-31.0); Mean Corpuscular Volume 96.1 fL (81.0-99.0); Mean Platelet Volume 10.6 fL (7.4-10.4); Nucleated Red Blood Cells % 0 %; Platelet Count 278 10^3/uL (130-400); Red Blood Cell Count 3.57 10^6/uL (4.20-5.40); Red Cell Dist. Width 15.6 % (11.5-14.5); White Blood Cell Count 6.2 10^3/uL (4.8-10.8)
[2024-08-23 16:07] LABS: ALT (SGPT) 13 U/L (0-35); AST (SGOT) 22 U/L (14-36); Albumin 4.1 g/dl (3.5-5.0); Alkaline Phosphatase 46 U/L (38-126); Blood Urea Nitrogen 32 mg/dl (7-17); Calcium 10.2 mg/dl (8.4-10.2); Carbon Dioxide 29 mmol/L (22-30); Chloride 102 mmol/L (98-107); Glucose 92 mg/dl (70-99); Lipase 59 U/L (23-300); Potassium 3.8 mmol/L (3.5-5.1); Sodium 142 mmol/L (135-145); Total Bilirubin 0.4 mg/dl (0.2-1.3); Total Protein 7.1 g/dl (6.3-8.2); eGFR 52.73
[2024-08-23 16:33] LABS: Troponin I < 0.012 ng/ml
--- NOTE | 2024-08-23 18:10 | ED.GENMED ---
History of Present Illness
<DO Beba Infante Last Filed: 08/23/24 18:16>
General
Chief Complaint: Change in Mental Status
Source: patient
Time Seen by Provider: 08/23/24 17:58
History of Present Illness
History of Present Illness:
73-year-old female sent to the emergency room from [facility] for evaluation of some confusion. Staff felt she was not herself today. Patient offers no complaints. She believes the staff was incorrect in their assessment. She states 'they
have never seen me in early in the morning.' Patient denies any headache, chest pain, shortness of breath. No known fever or chills.
Past History
<Wei Oliveros DO - Last Filed: 08/23/24 18:16>
Past History
ED Past Medical History: CVA, GERD, HTN, Hypercholesterolemia, NIDDM, Psychiatric (Anxiety, Depression, ) and Other (Aphasia, dementia, PE, Anemia)
ED Past Surgical History: Other (G-tube)
Social History
Alcohol: None
Living: halfway
Phy Exam
<Wei Oliveros DO - Last Filed: 08/23/24 18:16>
Physical Exam
Physical Exam:
General: Awake, Alert, Oriented X3. No acute distress. Appears chronically ill
Vitals: unremarkable
Head: Atraumatic
Eyes: Pupils equal, EOMI
Throat: Airway intact, no exudates
Neck: Trachea midline
Lungs: Clear and equal b/l
Heart: Regular rate, no murmurs
Abd: Soft, Nontender, No pulsatile mass
Neuro: Cranial nerves intact, muscle strength equal bilaterally
Skin: Warm, dry, no rash
Extremities: pulses equal b/l, no edema
Course
<Wei Oliveros DO - Last Filed: 08/23/24 18:16>
Orders/Labs/Results
Orders:
Orders
08/23/24 15:43
Complete Blood Count/With Diff Urgent
Comprehensive Metabolic Panel Urgent
Lipase Urgent
Troponin I Urgent
08/23/24 18:10
CT Head W/o Iv Contrast Urgent
Comment:
Reason For Exam: altered mental status
08/23/24 18:14
Lactated Ringers [Lr] 1,000 ml IV BOLUS
08/23/24 22:49
Urinalysis Reflex To Culture Urgent
08/24/24 01:03
Urine Microscopic Reflex Cult Urgent
Urine Culture Urgent
JAGDISH Source: U
Specimen Description:
08/24/24 04:14
Fosfomycin [Monurol] 3 gm TUBE ONCE ONE
Abnormal Lab Results
08/23/24 08/24/24
15:43 01:03
RBC 3.57 L 10^6/uL
(4.20-5.40)
Hgb 11.0 L g/dL
(12.0-16.0)
Hct 34.3 L %
(37.0-47.0)
MCHC 32.1 L g/dL
(33.0-37.0)
RDW 15.6 H %
(11.5-14.5)
MPV 10.6 H fL
(7.4-10.4)
Absolute Monos (auto) 0.7 H 10^3/uL
(0.1-0.6)
Neutrophils % 31.5 L %
(42.2-75.2)
Monocytes % 10.6 H %
(1.7-9.3)
Eosinophils % 8.2 H %
(0-6)
BUN 32 H mg/dl
(7-17)
Creatinine 1.1 H mg/dL
(0.6-1.0)
Leukocyte Esterase Rfl 1+ A
(Negative)
Urine RBC 3-6 A /HPF
(0-2)
Urine Bacteria (Reflex) Many A
(Negative)
08/23/24 15:43
08/23/24 15:43
Vital Signs
Initial and Last Documented VS:
Initial Vital Signs
BP
87/75
08/23/24 15:25
Last Documented Vital Signs
Temp Pulse Resp BP Pulse Ox
98.3 F 66 23 143/111 9
08/24/24 05:12 08/24/24 05:12 08/24/24 05:12 08/24/24 05:12 08/24/24 05:12
<Azra Dial, DO - Last Filed: 08/24/24 06:57>
Orders/Labs/Results
Orders:
Orders
08/23/24 15:43
Complete Blood Count/With Diff Urgent
Comprehensive Metabolic Panel Urgent
Lipase Urgent
Troponin I Urgent
08/23/24 18:10
CT Head W/o Iv Contrast Urgent
Comment:
Reason For Exam: altered mental status
08/23/24 18:14
Lactated Ringers [Lr] 1,000 ml IV BOLUS
08/23/24 22:49
Urinalysis Reflex To Culture Urgent
08/24/24 01:03
Urine Microscopic Reflex Cult Urgent
Urine Culture Urgent
JAGDISH Source: U
Specimen Description:
08/24/24 04:14
Fosfomycin [Monurol] 3 gm TUBE ONCE ONE
Abnormal Lab Results
08/23/24 08/24/24
15:43 01:03
RBC 3.57 L 10^6/uL
(4.20-5.40)
Hgb 11.0 L g/dL
(12.0-16.0)
Hct 34.3 L %
(37.0-47.0)
MCHC 32.1 L g/dL
(33.0-37.0)
RDW 15.6 H %
(11.5-14.5)
MPV 10.6 H fL
(7.4-10.4)
Absolute Monos (auto) 0.7 H 10^3/uL
(0.1-0.6)
Neutrophils % 31.5 L %
(42.2-75.2)
Monocytes % 10.6 H %
(1.7-9.3)
Eosinophils % 8.2 H %
(0-6)
BUN 32 H mg/dl
(7-17)
Creatinine 1.1 H mg/dL
(0.6-1.0)
Leukocyte Esterase Rfl 1+ A
(Negative)
Urine RBC 3-6 A /HPF
(0-2)
Urine Bacteria (Reflex) Many A
(Negative)
08/23/24 15:43
08/23/24 15:43
Vital Signs
Initial and Last Documented VS:
Initial Vital Signs
BP
87/75
08/23/24 15:25
Last Documented Vital Signs
Temp Pulse Resp BP Pulse Ox
98.3 F 66 23 143/111 9
08/24/24 05:12 08/24/24 05:12 08/24/24 05:12 08/24/24 05:12 08/24/24 05:12
<Azra Dial DO - Last Filed: 08/24/24 06:57>
*Radiology
Radiology exam reviewed: radiology read reviewed
*Pulse Oximetry
Patient hypoxic: no
*Critical Care Note
Total Time (30-74mins, 75-104mins- exclusive of procedures): Not Applicable
<Azra Dial, DO - Last Filed: 08/24/24 06:57>
Update Note
Update Note:
Patient presents from halfway with concern for change in mental status, concern for potential UTI.
She remains bright and alert, offers no complaints.
Vital signs reviewed. Mild hypotension noted initially has promptly resolved, normalized without return. She remains afebrile.
Labs reveal normal white blood cell count, mild anemia overall improved from previous.
Creatinine of 1.1, has trended up slightly from previous. Otherwise chemistries are within normal limits.
Patient has been given 1 L IV fluids.
CT of the head shows no acute findings.
Urinalysis shows many bacteria, 6-10 WBCs, leukocyte esterase positive concerning for potential UTI. As such she has been given a one-time dose of Monurol via PEG tube.
Nothing in history nor exam to suggest upper tract infection/pyelonephritis.
Will discharge back to halfway.
Urine culture is pending.
ED Attending Note
<Wei Oliveros, DO - Last Filed: 08/23/24 18:16>
-
Portions of this chart may have been created with voice recognition software.� Occasional wrong word or��sound alike� substitutions may have occurred due to the inherent limitations of voice recognition software.
Discharge Plan
Departure
Patient Disposition: Custodial/SNF
Date of Disposition: 08/24/24
Time of Disposition: 04:52
Patient with high blood pressure during this ER visit?: No
Condition: Good
Discharge Problem:
Urinary tract infection
Instructions: Urinary tract infections in adults
Prescriptions:
No Action
atorvastatin 40 mg Tablet
40 mg feeding tube DAILY Qty: 0
metformin 500 mg Tablet
500 mg feeding tube BID Qty: 0
acetaminophen 325 mg Tablet
650 mg PO Q6HPRN PRN (Reason: mild pain) Qty: 0
melatonin 3 mg Tablet
3 mg feeding tube HS Qty: 0
aspirin 81 mg Tablet,Delayed Release (Dr/Ec)
81 mg feeding tube DAILY Qty: 0
carvedilol 3.125 mg Tablet
3.125 mg feeding tube BID Qty: 0
levothyroxine 50 mcg Tablet
50 mcg feeding tube DAILY Qty: 0
gabapentin 300 mg Capsule
300 mg feeding tube TID Qty: 0
fenofibrate 160 mg Tablet
160 mg feeding tube DAILY Qty: 0
rivaroxaban 20 mg Tablet
20 mg G-tube DAILY Qty: 0
lansoprazole 3 mg/ml suspension
10 ml feeding tube Daily
magnesium hydroxide [Milk of Magnesia] 400 mg/5 mL Suspension
30 ml feeding tube HSPRN PRN (Reason: if no bm in 3 days)
bisacodyl 10 mg Suppository
10 mg [place] DAILYPRN PRN (Reason: if no results for MOM)
escitalopram oxalate 5 mg Tablet
5 mg feeding tube DAILY
Maalox Plus 225-200-25 mg/5 mL Suspension
30 ml feeding tube Q8HPRN PRN (Reason: indigestion)
ondansetron HCl 4 mg Tablet
4 mg feeding tube Q8HPRN PRN (Reason: nausea)
guaifenesin 100 mg/5 mL Liquid
200 mg feeding tube Q6HPRN PRN (Reason: cough)
nystatin 100,000 unit/gram Powder
1 applic TOPICAL TID
nystatin 100,000 unit/gram Powder
1 applic TOPICAL PRN PRN (Reason: fungal rash)
scopolamine base 1 mg over 3 days patch 3 day
1.5 mg transdermal Q72H
ipratropium bromide 0.02 % Solution
2.5 ml INHALATION R Q4HPRN PRN (Reason: sob/wheezing)
Referrals:
Anoop Wolf MD [Family Provider] - Call in 1-3 days for appt
Activity Restrictions/Additional Instructions:
Joselyn has been given a one-time dose of Monurol for UTI. Generally one-time dose is all that is needed for clearance of UTI. Urine culture is pending.
Interventions
Interventions:
*Risk Screen - Suicide Last Done: 08/23/24 15:26
*General Assessment Last Done: 08/23/24 15:26
*Neglect/Abuse Screening Last Done: 08/23/24 15:26
*ED COVID-19 Vaccine History Last Done: 08/23/24 15:26
*Nursing Disposition Last Done: 08/24/24 05:12
ED- Pulmonary Assessment Last Done: 08/23/24 19:25
ED-Psychological Assessment Last Done: 08/23/24 19:22
ED- Neurological Assessment Last Done: 08/23/24 19:23
ED Swallowing Screen Last Done: 08/24/24 03:40
Discharge Date and Time
Discharge Date/Time: 08/24/24 05:15
Print Language: DOMINICAN
[2024-08-23] MEDS: LR 1000 IV (18:19)
[2024-08-24] VITALS: BP 112/67
[2024-08-24 01:01] VITALS: BP 135/63
[2024-08-24 01:32] LABS: Urine Albumin Negative (Neg - Trace); Urine Bilirubin Negative (Negative); Urine Character Clear (Clear); Urine Color Yellow; Urine Glucose Negative (Negative); Urine Ketone Negative (Negative); Urine Leukocyte 1+ (Negative); Urine Nitrite Negative (Negative); Urine Occult Blood Negative (Negative); Urine Urobilinogen Negative (Neg - 1+); Urine pH 6.5 (5.0-9.0)
[2024-08-24 02:00] VITALS: BP 115/90
[2024-08-24 02:18] LABS: Urine Bacteria Many (Negative)
[2024-08-24] MEDS: MONUROL 3 GM TUBE (04:29)
[2024-08-24 04:34] VITALS: BP 143/111
[2024-08-24 05:12] VITALS: BP 143/111
== END 2024-08-24 05:15 ==
LOC: EMR 15:21
PROVIDERS: Physician Assistant; EMERGENCY PHYSICIAN Emergency Medicine; FAMILY PHYSICIAN Internal Medicine
DX: N39.0 Urinary tract infection, site not specified (principal)
CPT/HCPCS: 99284; 96360; 70450; 80053; 81003; 81015; 83690; 84484; 85025; 87086

== ENCOUNTER 2024-09-15 16:34 | Emergency (ER) | payer MEDICARE, OTHER, SELFPAY ==
[2024-09-15 16:37] VITALS: BMI 22.0
--- NOTE | 2024-09-15 16:59 | ED.GENMED ---
History of Present Illness
General
Chief Complaint: Catheter/Tube Problem
Source: patient, records, family and retirement records
Time Seen by Provider: 09/15/24 16:44
History of Present Illness
History of Present Illness:
73-year-old female with past medical history of CVA, dementia, previous pulmonary embolism presenting to the ER from [facility] to have her PEG tube removed. Patient's PEG tube has been clogged for the last few days and despite multiple attempts
to unclog this it was not successful. Patient had studies to confirm she is able to swallow without any aspiration and while they had made an appointment for this tube to be removed as an outpatient family was very concerned for possible
development of infection and were adamant patient to have the tube removed as soon as possible thus [facility] sending the patient to the ER for further evaluation. Patient herself has no concerns at this time.
Past History
Past History
ED Past Medical History: CVA, GERD, HTN, Hypercholesterolemia, NIDDM, Psychiatric (Anxiety, Depression, ) and Other (Aphasia, dementia, PE, Anemia)
ED Past Surgical History: Cholecystectomy and Other (G-tube)
Social History
Tobacco: Non-smoker
Alcohol: None
Drug: None
Personal:
Living: retirement
Review of Systems
Review of Systems
All Other Systems: ROS reviewed and negative except as documented in HPI and ROS
Phy Exam
Physical Exam
Physical Exam:
GENERAL: Alert , in no apparent distress
EYE: conjunctiva clear
Head: Normocephalic atraumatic
NECK: Supple,
ENT: mmm.
LUNGS: no acute respiratory distress
ABDOMEN: PEG tube in place. There is no surrounding erythema or drainage from the PEG tube tract
NEUROLOGICAL: Alert and oriented
SKIN: Warm and dry, skin intact.
MUSCULOSKELETAL: well perfused.
PSYCH: Normal and appropriate interaction.
Scores
Heart Failure Risk
Heart Failure Risk Score: Not Applicable
Heart Score for Chest Pain Patients
STEMI patient?: Not applicable
Withdrawal Assessment of Alcohol
Withdrawal Assessment Completed?: Not applicable
Course
Vital Signs
Initial and Last Documented VS:
Initial Vital Signs
Temp Pulse Resp Pulse Ox
98.9 F 65 15 99
09/15/24 16:37 09/15/24 16:37 09/15/24 16:37 09/15/24 16:37
Last Documented Vital Signs
Temp Pulse Resp Pulse Ox
98.9 F 65 15 99
09/15/24 16:37 09/15/24 16:37 09/15/24 16:37 09/15/24 16:37
MDM/Problems Addressed
MDM/Problems Addressed:
73-year-old female presenting to the ER at the request of the [facility] for evaluation ultimately removal of patient's PEG tube. I contacted the patient's provider at [facility], Dr. Saini, who confirmed this history and is
requesting PEG tube to be removed. I also contacted the patient's daughter, Nora, and verified that she is wanting the PEG tube removed. We discussed potential complications of the PEG tube being removed including infection and she expressed
understanding. Patient was also counseled on this and is in agreement with the PEG tube being removed. Patient had an 18 [place] PEG tube in place with 7 to 10 mL of normal saline inflating the balloon. There was no fluid left within the balloon.
Using gentle traction I was able to remove the PEG tube without any bleeding or complications. Sterile 4 x 4 gauze was placed over top. I cleaned around the tract with a sterile Hibiclens. Will arrange for transport back to patient's facility.
*Pulse Oximetry
Patient hypoxic: no
*Critical Care Note
Total Time (30-74mins, 75-104mins- exclusive of procedures): Not Applicable
Data Reviewed
Review of Other/Old Records Reveals: Records
Patient Management
Discussion with other providers: half-way staff
ED Attending Note
-
Portions of this chart may have been created with voice recognition software.� Occasional wrong word or��sound alike� substitutions may have occurred due to the inherent limitations of voice recognition software.
Discharge Plan
Departure
Patient Disposition: [facility]/SNF
Date of Disposition: 09/15/24
Time of Disposition: 16:59
Patient with high blood pressure during this ER visit?: No
Discharge Problem:
PEG tube malfunction
Prescriptions:
No Action
atorvastatin 40 mg Tablet
40 mg feeding tube DAILY Qty: 0
metformin 500 mg Tablet
500 mg feeding tube BID Qty: 0
acetaminophen 325 mg Tablet
650 mg PO Q6HPRN PRN (Reason: mild pain) Qty: 0
melatonin 3 mg Tablet
3 mg feeding tube HS Qty: 0
aspirin 81 mg Tablet,Delayed Release (Dr/Ec)
81 mg feeding tube DAILY Qty: 0
carvedilol 3.125 mg Tablet
3.125 mg feeding tube BID Qty: 0
levothyroxine 50 mcg Tablet
50 mcg feeding tube DAILY Qty: 0
gabapentin 300 mg Capsule
300 mg feeding tube TID Qty: 0
fenofibrate 160 mg Tablet
160 mg feeding tube DAILY Qty: 0
rivaroxaban 20 mg Tablet
20 mg G-tube DAILY Qty: 0
lansoprazole 3 mg/ml suspension
10 ml feeding tube Daily
magnesium hydroxide [Milk of Magnesia] 400 mg/5 mL Suspension
30 ml feeding tube HSPRN PRN (Reason: if no bm in 3 days)
bisacodyl 10 mg Suppository
10 mg [place] DAILYPRN PRN (Reason: if no results for MOM)
escitalopram oxalate 5 mg Tablet
5 mg feeding tube DAILY
Maalox Plus 225-200-25 mg/5 mL Suspension
30 ml feeding tube Q8HPRN PRN (Reason: indigestion)
ondansetron HCl 4 mg Tablet
4 mg feeding tube Q8HPRN PRN (Reason: nausea)
guaifenesin 100 mg/5 mL Liquid
200 mg feeding tube Q6HPRN PRN (Reason: cough)
nystatin 100,000 unit/gram Powder
1 applic TOPICAL TID
nystatin 100,000 unit/gram Powder
1 applic TOPICAL PRN PRN (Reason: fungal rash)
scopolamine base 1 mg over 3 days patch 3 day
1.5 mg transdermal Q72H
ipratropium bromide 0.02 % Solution
2.5 ml INHALATION R Q4HPRN PRN (Reason: sob/wheezing)
Referrals:
Anoop Wolf MD [Family Provider] -
Interventions
Interventions:
*Risk Screen - Suicide Last Done: 09/15/24 16:37
*General Assessment Last Done: 09/15/24 16:37
*Neglect/Abuse Screening Last Done: 09/15/24 16:37
*ED COVID-19 Vaccine History Last Done: 09/15/24 16:37
HA-Zwwfvy-Swvdueeqnd Assessment Last Done: 09/15/24 17:01
Discharge Date and Time
Print Language: HUNGARIAN
== END 2024-09-15 20:21 ==
LOC: EMR 16:34
PROVIDERS: EMERGENCY PHYSICIAN Emergency Medicine; FAMILY PHYSICIAN Internal Medicine
DX: K94.23 Gastrostomy malfunction (principal); Z86.73 Personal history of transient ischemic attack (TIA), and cerebral infarction without residual deficits; Z86.711 Personal history of pulmonary embolism
CPT/HCPCS: 99283

== ENCOUNTER 2024-11-03 09:10 | Emergency (ER) | payer MEDICARE, OTHER, SELFPAY ==
[2024-11-03] VITALS (8 sets, daily range): BP systolic 97–124; BP diastolic 53–65; BMI 20.4
--- NOTE | 2024-11-03 09:25 | ED.GENMED ---
History of Present Illness
General
Chief Complaint: Headache
Source: patient and ambulance crew
Exam Limitations: none
Time Seen by Provider: 11/03/24 09:14
History of Present Illness
History of Present Illness:
74yoF with a history of prior CVA with L sided weakness, afib on Xarelto, hypertension, hyperlipidemia, insulin-dependent type 2 diabetes, COPD on 4L NC, and hypothyroidism presenting via EMS for altered mental status. Patient arrives from [place]. [facility] to EMS that she had an acute change in mental status this morning and she was difficult to arouse. She was also reportedly having a conversation with herself. She was A&O throughout EMS transport.
There was reported concern for a UTI. She states she is here for her left shoulder discomfort which has been ongoing for 3 weeks since being diagnosed with shingles in the area. She has chronic headaches but denies any other concerns. She denies any
fevers, chills, chest pain, shortness of breath. She was seen in the ED on 08/23/24 for similar complaints. She was given a dose of fosfomycin in the ED for possible UTI. Urine culture grew out mixed contaminants at that time.
Past History
Past History
ED Past Medical History: CVA, GERD, HTN, Hypercholesterolemia, NIDDM, Psychiatric (Anxiety, Depression, ) and Other (Aphasia, dementia, PE, Anemia)
ED Past Surgical History: Cholecystectomy and Other (G-tube)
Social History
Tobacco: Non-smoker
Alcohol: None
Drug: None
Personal:
Living: jail
Phy Exam
General Physical Exam
General Presentation: well appearing and no apparent distress
General age: appears stated age
General Skin: warm and dry
General Habitus: normal
General Mental: alert
ENT Exam
ENT Exam: normocephalic
Eye Exam
Eye Exam: PERRL
Cardiovascular Exam
Cardiovascular Exam: regular rate/rhythm
Pulmonary Exam
Pulmonary Exam: lungs clear, no respiratory distress, no rales, no crackles and no rhonchi
Gastrointestinal Exam
Gastrointestinal Exam: non tender, soft and non distended
Neurological Exam
Neurological Exam: alert and other (Oriented to person, place, and time)
Karon Coma Scale
Eye Opening: Spontaneous
Verbal Response: Oriented
Motor Response: Obeys Commands
GCS Total Score: 15
Skin Exam
Skin Exam: warm/dry and other (Rash present to L upper chest consistent with resolving zoster rash.)
Psychiatric Exam
Psychiatric Exam: normal mood/affect
Course
Orders/Labs/Results
Orders:
Orders
11/03/24 09:24
Electrocardiogram (*1) Urgent
Reason for Study: Other
Other Reason for Exam: AMS
EKG- Treatment ONCE
11/03/24 09:25
CT Head W/o Iv Contrast Urgent
Comment:
Reason For Exam: AMS
11/03/24 09:56
Complete Blood Count/With Diff Urgent
Comprehensive Metabolic Panel Urgent
TSH Reflex To Free T4 Urgent
Troponin I Urgent
Urinalysis Reflex To Culture Urgent
Date Specimen was Collected: 11/03/24
Time Specimen was Collected: 09:45
Urine Microscopic Reflex Cult Urgent
Urine Culture Urgent
JAGDISH Source: U
Specimen Description:
Date Specimen was Collected: 11/03/24
Time Specimen was Collected: 09:45
11/03/24 11:16
CefTRIAXone [Rocephin] 2,000 mg IV NOW STA
Nursing to Place Non Medication Order As Directed
Physician Order: PO challenge
Above order entered?: Yes
11/03/24 11:53
Sterile Water [Sterile Water For Injection] 20 ml .ROUTE .STK-MED
Abnormal Lab Results
11/03/24
09:56
RBC 3.53 L 10^6/uL
(4.20-5.40)
Hgb 10.4 L g/dL
(12.0-16.0)
Hct 31.8 L %
(37.0-47.0)
MCHC 32.7 L g/dL
(33.0-37.0)
Plt Count 423 H 10^3/uL
(130-400)
Abs Immat Gran (auto) 0.1 H 10^3/uL
(0-0.05)
Absolute Monos (auto) 0.9 H 10^3/uL
(0.1-0.6)
Immature Gran % 1.5 H %
(0-0.5)
Neutrophils % 30.3 L %
(42.2-75.2)
Monocytes % 12.9 H %
(1.7-9.3)
Eosinophils % 10.4 H %
(0-6)
BUN 20 H mg/dl
(7-17)
Glucose 173 H mg/dl
(70-99)
Ur Occult Blood Reflex 1+ A
(Negative)
Leukocyte Esterase Rfl 3+ A
(Negative)
Urine RBC 3-6 A /HPF
(0-2)
Urine WBC (Reflex) 26-30 A /HPF
(0-5)
Urine Bacteria (Reflex) Moderate A
(Negative)
Urine Albumin (Reflex) 1+ A
(Neg - Trace)
11/03/24 09:56
11/03/24 09:56
Vital Signs
Initial and Last Documented VS:
Initial Vital Signs
Temp Pulse Resp BP Pulse Ox
98.3 F 66 16 124/65 99
11/03/24 09:35 11/03/24 09:35 11/03/24 09:35 11/03/24 09:35 11/03/24 09:35
Last Documented Vital Signs
Temp Pulse Resp BP Pulse Ox
98.7 F 62 18 105/55 96
11/03/24 14:48 11/03/24 14:48 11/03/24 14:48 11/03/24 14:48 11/03/24 14:48
MDM/Problems Addressed
Differential Diagnosis Includes:
74yoF here for concerns for a change in mental status. Hx of frequent UTIs. Patient was reportedly difficult to arouse this morning although she is awake and alert on arrival. She A&Ox3. VSS. Patient is well-appearing no acute distress.
Differential diagnosis includes but is not limited to: Dementia, UTI, dehydration, thyroid dysfunction, doubt acute CVA
Initial ED plan: Check cardiac labs, TSH, UA, EKG, and CT head.
*EKG
Interpreted by ED Provider?: Yes
EKG Intrepretation Date: 11/03/24
Heart Rate: 64
Rate: normal
Rhythm: sinus
Anton: normal axis
Interval: normal interval
QRS Pattern: normal QRS
Ischemia: no ischemia
*Critical Care Note
Total Time (30-74mins, 75-104mins- exclusive of procedures): Not Applicable
Update Note
Update Note:
Labs overall unremarkable including normal electrolytes, renal function, TSH. CT head negative for acute findings. UA with 3+ leukocytes and moderate bacteria consistent with a UTI. Patient remains A&O on reassessment and is mainly complaining of
residual pain from her shingles 3 weeks ago. No indication for hospitalization at this time. Dose of IV Rocephin given in ED and she was started on a course of cefdinir. Patient discharged back to [facility] in stable condition.
ED Attending Note
-
Portions of this chart may have been created with voice recognition software.� Occasional wrong word or��sound alike� substitutions may have occurred due to the inherent limitations of voice recognition software.
Discharge Plan
Departure
Patient Disposition: Home (Routine Discharge)
Date of Disposition: 11/03/24
Time of Disposition: 12:15
Patient with high blood pressure during this ER visit?: No
Discharge Problem:
Urinary tract infection
Instructions: Urinary tract infection in adults - ED discharge instructions
Prescriptions:
New
cefdinir 300 mg capsule
300 mg PO BID Qty: 14 0RF
No Action
atorvastatin 40 mg Tablet
40 mg feeding tube DAILY Qty: 0
metformin 500 mg Tablet
500 mg feeding tube BID Qty: 0
acetaminophen 325 mg Tablet
650 mg PO Q6HPRN PRN (Reason: mild pain) Qty: 0
melatonin 3 mg Tablet
3 mg feeding tube HS Qty: 0
aspirin 81 mg Tablet,Delayed Release (Dr/Ec)
81 mg feeding tube DAILY Qty: 0
carvedilol 3.125 mg Tablet
3.125 mg feeding tube BID Qty: 0
levothyroxine 50 mcg Tablet
50 mcg feeding tube DAILY Qty: 0
gabapentin 300 mg Capsule
300 mg feeding tube TID Qty: 0
fenofibrate 160 mg Tablet
160 mg feeding tube DAILY Qty: 0
rivaroxaban 20 mg Tablet
20 mg G-tube DAILY Qty: 0
lansoprazole 3 mg/ml suspension
10 ml feeding tube Daily
magnesium hydroxide [Milk of Magnesia] 400 mg/5 mL Suspension
30 ml feeding tube HSPRN PRN (Reason: if no bm in 3 days)
bisacodyl 10 mg Suppository
10 mg [place] DAILYPRN PRN (Reason: if no results for MOM)
escitalopram oxalate 5 mg Tablet
5 mg feeding tube DAILY
Maalox Plus 225-200-25 mg/5 mL Suspension
30 ml feeding tube Q8HPRN PRN (Reason: indigestion)
ondansetron HCl 4 mg Tablet
4 mg feeding tube Q8HPRN PRN (Reason: nausea)
guaifenesin 100 mg/5 mL Liquid
200 mg feeding tube Q6HPRN PRN (Reason: cough)
nystatin 100,000 unit/gram Powder
1 applic TOPICAL TID
nystatin 100,000 unit/gram Powder
1 applic TOPICAL PRN PRN (Reason: fungal rash)
scopolamine base 1 mg over 3 days patch 3 day
1.5 mg transdermal Q72H
ipratropium bromide 0.02 % Solution
2.5 ml INHALATION R Q4HPRN PRN (Reason: sob/wheezing)
Referrals:
Anoop Wolf MD [Family Provider] -
Activity Restrictions/Additional Instructions:
Take antibiotics as prescribed to treat your UTI.
Please follow-up with your family doctor. Return to the ER with any new or worsening symptoms.
Interventions
Interventions:
*Risk Screen - Suicide Last Done: 11/03/24 09:35
*General Assessment Last Done: 11/03/24 09:35
*Neglect/Abuse Screening Last Done: 11/03/24 09:35
ED- Fall Risk Assessment Last Done: 11/03/24 09:41
*ED COVID-19 Vaccine History Last Done: 11/03/24 09:35
*Nursing Disposition Last Done: 11/03/24 14:48
ED- Neurological Assessment Last Done: 11/03/24 09:41
Discharge Date and Time
Discharge Date/Time: 11/03/24 14:45
Print Language: SAO TOMEAN
[2024-11-03 10:14] LABS: % Basophils 1.1 % (0-2); % Eosinophils 10.4 % (0-6); % Immature Granulocytes 1.5 % (0-0.5); % Lymphocytes 43.8 % (20.5-51.1); % Monocytes 12.9 % (1.7-9.3); % Neutrophils 30.3 % (42.2-75.2); Absolute Basophils 0.1 10^3/uL (0-0.2); Absolute Eosinophils 0.7 10^3/uL (0-0.7); Absolute Immature Granulocytes 0.1 10^3/uL (0-0.05); Absolute Lymphocytes 3.1 10^3/uL (1.2-3.4); Absolute Monocytes 0.9 10^3/uL (0.1-0.6); Absolute Neutrophils 2.2 10^3/uL (1.4-6.5); Hematocrit 31.8 % (37.0-47.0); Hemoglobin 10.4 g/dL (12.0-16.0); Mean Corp Hgb Conc. 32.7 g/dL (33.0-37.0); Mean Corpuscular Hgb 29.5 pg (27.0-31.0); Mean Corpuscular Volume 90.1 fL (81.0-99.0); Mean Platelet Volume 9.1 fL (7.4-10.4); Nucleated Red Blood Cells % 0 %; Platelet Count 423 10^3/uL (130-400); Red Blood Cell Count 3.53 10^6/uL (4.20-5.40); Red Cell Dist. Width 14.4 % (11.5-14.5); White Blood Cell Count 7.1 10^3/uL (4.8-10.8)
[2024-11-03 10:32] LABS: Carbon Dioxide 23 mmol/L (22-30)
[2024-11-03 10:43] LABS: ALT (SGPT) 11 U/L (0-35); AST (SGOT) 17 U/L (14-36); Albumin 3.7 g/dl (3.5-5.0); Alkaline Phosphatase 58 U/L (38-126); Blood Urea Nitrogen 20 mg/dl (7-17); Calcium 9.6 mg/dl (8.4-10.2); Chloride 107 mmol/L (98-107); Estimated Creatinine Clearance 47 ml/min; Glucose 173 mg/dl (70-99); Potassium 3.9 mmol/L (3.5-5.1); Sodium 140 mmol/L (135-145); Total Bilirubin 0.4 mg/dl (0.2-1.3); Total Protein 6.8 g/dl (6.3-8.2); eGFR > 60.00
[2024-11-03 10:45] LABS: Troponin I < 0.012 ng/ml
[2024-11-03 10:48] LABS: Urine Albumin 1+ (Neg - Trace); Urine Bilirubin Negative (Negative); Urine Character Clear (Clear); Urine Color Yellow; Urine Glucose Negative (Negative); Urine Ketone Negative (Negative); Urine Leukocyte 3+ (Negative); Urine Nitrite Negative (Negative); Urine Occult Blood 1+ (Negative); Urine Urobilinogen Negative (Neg - 1+)
[2024-11-03 11:03] LABS: TSH Reflex To Free T4 2.55 uIU/ml (0.47-4.68)
[2024-11-03 11:11] LABS: Urine Squamous Cell >30 /LPF (Few)
[2024-11-03 11:12] LABS: Urine White Cell 26-30 /HPF (0-5)
[2024-11-03 11:13] LABS: Urine Bacteria Moderate (Negative)
[2024-11-03] MEDS: ROCEPHIN 2000 MG IV (11:55)
--- NOTE | 2024-11-03 14:45 | EDRN ---
Report called to SAUNDRA Womack at [facility] and ambulance staff of [facility].
== END 2024-11-03 14:45 | disposition home or self-care (01) ==
LOC: EMR 09:10
PROVIDERS: Physician Assistant; EMERGENCY PHYSICIAN Emergency Medicine; FAMILY PHYSICIAN Internal Medicine
DX: N39.0 Urinary tract infection, site not specified (principal); R51.9 Headache, unspecified; I69.354 Hemiplegia and hemiparesis following cerebral infarction affecting left non-dominant side; I48.91 Unspecified atrial fibrillation; I10 Essential (primary) hypertension; E78.00 Pure hypercholesterolemia, unspecified; E11.9 Type 2 diabetes mellitus without complications; E03.9 Hypothyroidism, unspecified; F03.93 Unspecified dementia, unspecified severity, with mood disturbance; F03.94 Unspecified dementia, unspecified severity, with anxiety; J44.9 Chronic obstructive pulmonary disease, unspecified; K21.9 Gastro-esophageal reflux disease without esophagitis; Z79.01 Long term (current) use of anticoagulants; Z90.49 Acquired absence of other specified parts of digestive tract; Z99.81 Dependence on supplemental oxygen
CPT/HCPCS: 99284; 96374; 70450; 80053; 81003; 81015; 84443; 84484; 85025; 87086; 93005

== ENCOUNTER 2025-01-08 08:20 | Emergency (ER) | payer MEDICARE, OTHER, SELFPAY ==
[2025-01-08] VITALS (7 sets, daily range): BP systolic 98–126; BP diastolic 39–64; BMI 29.8
[2025-01-08] MEDS: DECADRON 10 MG IV (09:03)
[2025-01-08] MEDS: DUONEB 3 ML INH (09:03)
[2025-01-08 09:07] LABS: % Basophils 0.2 % (0-2); % Eosinophils 1.6 % (0-6); % Immature Granulocytes 0.5 % (0-0.5); % Lymphocytes 23.2 % (20.5-51.1); % Monocytes 8.7 % (1.7-9.3); % Neutrophils 65.8 % (42.2-75.2); Absolute Eosinophils 0.1 10^3/uL (0-0.7); Absolute Lymphocytes 1.5 10^3/uL (1.2-3.4); Absolute Monocytes 0.6 10^3/uL (0.1-0.6); Absolute Neutrophils 4.2 10^3/uL (1.4-6.5); Hemoglobin 8.7 g/dL (12.0-16.0); Mean Corp Hgb Conc. 32.2 g/dL (33.0-37.0); Mean Corpuscular Hgb 28.8 pg (27.0-31.0); Mean Corpuscular Volume 89.4 fL (81.0-99.0); Mean Platelet Volume 10.4 fL (7.4-10.4); Nucleated Red Blood Cells % 0 %; Platelet Count 286 10^3/uL (130-400); Red Blood Cell Count 3.02 10^6/uL (4.20-5.40); Red Cell Dist. Width 17.2 % (11.5-14.5); White Blood Cell Count 6.3 10^3/uL (4.8-10.8)
--- NOTE | 2025-01-08 09:22 | ED.GENMED ---
History of Present Illness
General
Chief Complaint: Breathing Problem
Source: patient
Exam Limitations: none
Time Seen by Provider: 01/08/25 08:22
Nursing documentation reviewed up to this point in time: agreed with
History of Present Illness
History of Present Illness:
74-year-old female with past medical history of previous stroke, dementia, COPD, previous PE currently on Xarelto, diabetes presenting to the emergency department today with concerns of upper respiratory symptoms over the past week or so worsening
respiratory status over the past day or so recurrent fever today. She specifically denies any symptoms other than upper respiratory symptoms and cough at this moment.
Past History
Past History
ED Past Medical History: CVA, GERD, HTN, Hypercholesterolemia, NIDDM, Psychiatric (Anxiety, Depression, ) and Other (Aphasia, dementia, PE, Anemia)
ED Past Surgical History: Cholecystectomy and Other (G-tube)
Social History
Tobacco: Non-smoker
Alcohol: None
Drug: None
Personal:
Living: [facility]
Review of Systems
Review of Systems
Allergies reviewed?: Yes
All Other Systems: ROS reviewed and negative except as documented in HPI and ROS
Phy Exam
Physical Exam
Physical Exam:
GENERAL: Alert , in no apparent distress
EYE: pupils equal and reactive
NECK: Supple, no significant adenopathy.
ENT: o/p clr, mmm.
CARDIAC: Regular rate and rhythm .
LUNGS: Diffuse inspiratory and expiratory wheezing as well as additional rhonchi and rales to the left lower lung region.
ABDOMEN: Soft, without focal tenderness, no r/g, no cvat
NEUROLOGICAL: Alert and oriented, no focal neuro deficits
SKIN: Warm and dry, skin intact.
MUSCULOSKELETAL: No edema, well perfused.
PSYCH: Normal and appropriate interaction.
Scores
Heart Failure Risk
Heart Failure Risk Score: Not Applicable
Course
Orders/Labs/Results
Orders:
Orders
01/08/25 08:26
Electrocardiogram (*1) Stat
Reason for Study: Other
Other Reason for Exam: pneumonia
EKG- Treatment ONCE
CR Chest - 2 Views Urgent
Comment:
Reason For Exam: cough fever
01/08/25 08:27
Urinalysis Reflex To Culture Urgent
01/08/25 08:51
COVID-19 Antigen Urgent
Source: Nasal Swab
Complete Blood Count/With Diff Urgent
Influenza A+B Rapid Molecular Urgent
JAGDISH Source: Nasal Swab
Specimen Description:
01/08/25 08:54
Dexamethasone Sod Phosphate [Decadron] 10 mg IV NOW STA
Ipratropium/Albuterol Sulfate [Duoneb] 3 ml INH R NOW ONE
01/08/25 08:56
Dexamethasone Sod Phosphate [Decadron] 20 mg .ROUTE .STK-MED ONE
Ipratropium/Albuterol Sulfate [Duoneb] 3 ml .ROUTE .STK-MED ONE
01/08/25 10:08
NT-proBNP Urgent
Troponin I Urgent
01/08/25 10:10
Basic Metabolic Panel Urgent
01/08/25 10:54
CefTRIAXone [Rocephin] 1,000 mg IV NOW STA
01/08/25 10:55
Azithromycin 500 mg/250 ml [Zithromax Infusion] 500 mg in 250 ml IV NOW
Abnormal Lab Results
01/08/25 01/08/25
08:51 10:10
RBC 3.02 L 10^6/uL
(4.20-5.40)
Hgb 8.7 L g/dL
(12.0-16.0)
Hct 27.0 L %
(37.0-47.0)
MCHC 32.2 L g/dL
(33.0-37.0)
RDW 17.2 H %
(11.5-14.5)
BUN 37 H mg/dl
(7-17)
Glucose 103 H mg/dl
(70-99)
01/08/25 08:51
01/08/25 10:10
Vital Signs
Initial and Last Documented VS:
Initial Vital Signs
BP
112/54
01/08/25 08:27
Last Documented Vital Signs
Temp Pulse Resp BP Pulse Ox
99.1 F 74 20 108/56 96
01/08/25 08:31 01/08/25 10:45 01/08/25 10:45 01/08/25 10:00 01/08/25 09:15
MDM/Problems Addressed
MDM/Problems Addressed:
74-year-old female presenting to the emergency department today with concerns of respiratory distress according to nursing facility that she lives. She is on chronic oxygen for COPD. Here she has significant wheezing as well as rhonchi to the left
lower lung field. Patient started on DuoNeb and steroid for potential COPD exacerbation. Additionally she tested positive for flu while here. Chest x-ray with possible pneumonia to the left lower lung lung sounds consistent with possible
pneumonia. Started on antibiotics otherwise here doing well in the mid 90s on 3 L nasal cannula which is what she uses at home. Case discussed with [facility] will be sent back for further treatment. Return precautions given.
*Critical Care Note
Total Time (30-74mins, 75-104mins- exclusive of procedures): Not Applicable
ED Attending Note
-
Portions of this chart may have been created with voice recognition software.� Occasional wrong word or��sound alike� substitutions may have occurred due to the inherent limitations of voice recognition software.
Discharge Plan
Departure
Patient Disposition: Home (Routine Discharge)
Date of Disposition: 01/08/25
Time of Disposition: 11:54
Patient with high blood pressure during this ER visit?: No
Condition: Good
Covid-19: Not Applicable
Discharge Problem:
Pneumonia, COPD exacerbation, Influenza
Instructions: Exacerbation of COPD (DC)
Prescriptions:
New
prednisone 50 mg tablet
50 mg PO DAILY 4 Days Qty: 4 0RF
cefpodoxime 200 mg tablet
200 mg PO BID 7 Days Qty: 14 0RF
azithromycin 500 mg tablet
500 mg PO DAILY 2 Days Qty: 2 0RF
No Action
atorvastatin 40 mg Tablet
40 mg PO DAILY Qty: 0
melatonin 3 mg Tablet
3 mg PO HS Qty: 0
carvedilol 3.125 mg Tablet
3.125 mg PO BID Qty: 0
levothyroxine 50 mcg Tablet
50 mcg PO DAILY Qty: 0
fenofibrate 160 mg Tablet
160 mg PO DAILY Qty: 0
magnesium hydroxide [Milk of Magnesia] 400 mg/5 mL Suspension
30 ml PO HSPRN PRN (Reason: if no bm in 3 days)
bisacodyl 10 mg Suppository
10 mg MI DAILYPRN PRN (Reason: if no results for MOM)
ondansetron HCl 4 mg Tablet
4 mg PO Q8HPRN PRN (Reason: nausea)
metformin 500 mg Tablet
500 mg PO BID
acetaminophen [Tylenol] 325 mg Tablet
650 mg PO Q6HPRN PRN (Reason: mild pain)
gabapentin 400 mg Capsule
400 mg PO TID
lansoprazole 30 mg Capsule,Delayed Release(Dr/Ec)
30 mg PO DAILY
lidocaine [Lidoderm] 5 % Adhesive Patch,Medicated
1 patch TOPICAL DAILYPRN PRN (Reason: resident to decide)
aspirin 81 mg Tablet,Chewable
81 mg PO DAILY
ipratropium bromide 0.02 % Solution
0.5 mg INHALATION R Q4HPRN PRN (Reason: sob)
escitalopram oxalate [Lexapro] 10 mg Tablet
10 mg PO DAILY
Xarelto 20 mg Tablet
20 mg PO DAILY
Referrals:
Anoop Wolf MD [Family Provider] -
Activity Restrictions/Additional Instructions:
You came to the emergency department today with concerns of respiratory issues. Here you had improvement of symptoms. You likely have reactive airway as well as possible early pneumonia. Please take the prescribed medications over the next few
days. Return for any worsening, new or concerning symptoms.
Interventions
Interventions:
*Neglect/Abuse Screening Last Done: 01/08/25 08:35
*ED- Fall Risk Assessment Last Done: 01/08/25 08:35
*ED COVID-19 Vaccine History Last Done: 01/08/25 08:35
ED- Cardiac Assessment Last Done: 01/08/25 08:36
ED- Pulmonary Assessment Last Done: 01/08/25 08:36
Discharge Date and Time
Print Language: TRINIDADIAN
[2025-01-08 09:23] LABS: COVID-19 Antigen Negative (Negative)
[2025-01-08 10:45] LABS: NT-proBNP 545 pg/ml; Troponin I < 0.012 ng/ml
[2025-01-08 10:50] LABS: Blood Urea Nitrogen 37 mg/dl (7-17); Calcium 9.3 mg/dl (8.4-10.2); Carbon Dioxide 24 mmol/L (22-30); Chloride 105 mmol/L (98-107); Estimated Creatinine Clearance 56 ml/min; Glucose 103 mg/dl (70-99); Sodium 140 mmol/L (135-145); eGFR > 60.00
[2025-01-08] MEDS: ZITHROMAX INFUSION 250 IV (11:15)
[2025-01-08] MEDS: ROCEPHIN 1000 MG IV (11:15)
[2025-01-08 13:07] LABS: Urine Albumin 2+ (Neg - Trace); Urine Bilirubin 1+ (Negative); Urine Character Clear (Clear); Urine Color Yellow; Urine Glucose Negative (Negative); Urine Ketone Negative (Negative); Urine Leukocyte 1+ (Negative); Urine Nitrite Negative (Negative); Urine Occult Blood Negative (Negative); Urine Urobilinogen Negative (Neg - 1+)
[2025-01-08 14:25] LABS: Urine Squamous Cell >30 /LPF (Few)
[2025-01-08 14:26] LABS: Urine Amorphous Seen
[2025-01-08 14:27] LABS: Urine Red Blood Cell 0-2 /HPF (0-2); Urine Yeast Moderate (Negative)
== END 2025-01-08 13:29 | disposition home or self-care (01) ==
LOC: EMR 08:20
PROVIDERS: Physician Assistant; EMERGENCY PHYSICIAN Student in an Organized Health Care Education/Training Program; FAMILY PHYSICIAN Internal Medicine
DX: J10.00 Influenza due to other identified influenza virus with unspecified type of pneumonia (principal); J44.1 Chronic obstructive pulmonary disease with (acute) exacerbation; I10 Essential (primary) hypertension; E78.00 Pure hypercholesterolemia, unspecified; E11.9 Type 2 diabetes mellitus without complications; F03.94 Unspecified dementia, unspecified severity, with anxiety
CPT/HCPCS: 99283; 94640; 96365; 96375; 71046; 80048; 81003; 81015; 83880; 84484; 85025; 87086; 87502; 87811; 93005